=== PATIENT | female | born 1945 | race Caucasian/White ===

== ENCOUNTER 2016-06-09 15:53 | Inpatient (IN) | payer MEDICARE, OTHER ==
[2016-06-09] MEDS ORDERED: Albuterol/Ipratropium 3.0-0.5 MG/3 ML Neb Soln NEB ONE ×2 (16:01→16:47)
[2016-06-09] MEDS ORDERED: methylPREDNISolone Sodium Succinate 125 MG/2 ML SDV IV ONE (16:04)
[2016-06-09] MEDS ORDERED: Magnesium Sulfate/Water 2 GM in Premix Bag 1 BAG IV ONE (16:05)
[2016-06-09] MEDS ORDERED: Piperacillin/Tazobactam 4.5 GM in Sodium Chloride 0.9% 100 ML IV ONE (16:21)
[2016-06-09] MEDS ORDERED: Levofloxacin/Dextrose 5%-Water 750 MG in Premix Bag 1 BAG IV ONE (16:23)
[2016-06-09] MEDS ORDERED: Azithromycin 500 MG in Sodium Chloride 0.9% 250 ML IV ONE (16:27)
[2016-06-09] MEDS ORDERED: Albuterol 0.083% 2.5 MG/3 ML Neb Soln NEB ONE (16:32)
[2016-06-09 16:44] LABS: BASOPHILS PERCENT AUTO 0.3 % (0.2-1.2); EOSINOPHILS PERCENT AUTO 1.3 % (0.0-4.0); HEMATOCRIT 33.2 % (33.0-47.0); HEMOGLOBIN 10.8 g/dL (12.0-16.0); LYMPHOCYTES PERCENT AUTO 14.8 % (25.0-50.0); MEAN CORPUSCULAR HEMOGLOBIN 31.5 pg (26.0-32.0); MEAN CORPUSCULAR HGB CONC 32.5 g/dL (32.0-36.0); MEAN CORPUSCULAR VOLUME 96.8 fL (78.0-93.0); MONOCYTES PERCENT AUTO 8.9 % (2.0-11.0); NEUTROPHILS PERCENT AUTO 74.7 % (50.0-80.0); RED BLOOD CELL COUNT 3.43 x10^6/uL (4.00-5.50)
[2016-06-09 16:57] LABS: HCO3 ARTERIAL,ISTAT 21 mmol/L (22-26); O2 SATURATION ARTERIAL,ISTAT 99 % (95-98); PCO2 ARTERIAL,ISTAT 16 mmHG (35-45); PH ARTERIAL,ISTAT 7.719 (7.35-7.45); PO2 ARTERIAL,ISTAT 96 mmHG (80-105); TCO2 ARTERIAL,ISTAT 22 mmol/L (23-27)
[2016-06-09] MEDS: Sodium Chloride 0.9% 10 ML Syringe FLUSH PRN ×4 (17:17→23:26)
[2016-06-09 17:25] LABS: A/G RATIO 0.73; ALBUMIN 2.9 g/dL (3.4-5.0); ALKALINE PHOSPHATASE 110 U/L (46-116); B-TYPE NATRIURETIC PEPTIDE,BNP 426 pg/mL (<=125); BILIRUBIN TOTAL 0.6 mg/dL (0.2-1.0); C-REACTIVE PROTEIN 11.8 mg/dL (<=0.9); CALCIUM 9.6 mg/dL (8.5-10.1); CHLORIDE,CL 102 mmol/L (98-107); CKMB 1.5 ng/mL (0.0-3.6); CORRECTED CALCIUM 10.48 mg/dL (8.5-10.1); CREATININE 1.3 mg/dL (0.55-1.02); EST CRCL DRUG DOSING (CG) 33.34 mL/min; ESTIMATED GFR 41; GLUCOSE RANDOM 80 mg/dL (74-106); TROPONIN I < 0.017 ng/mL (<=0.056)
[2016-06-09] MEDS ORDERED: Sodium Chloride 0.9% 100 ML IV ONE (17:41)
[2016-06-09] MEDS ORDERED: Iopamidol 612 MG/ML 100 ML Bottle IVPUSH ONE (17:41)
[2016-06-09] MEDS ORDERED: Albuterol 0.083% 2.5 MG/3 ML Neb Soln NEB PRN (19:48)
[2016-06-09] MEDS ORDERED: Formoterol/Mometasone 200-5 MCG 8.8 GM Inhaler IH SCH (20:00)
--- NOTE | 2016-06-09 20:15 | PCM.HP ---
H&P History of Present Illness - General Date of Service: 06/09/16 Admit Problem/Dx: Admission Diagnosis/Problem Admission Diagnosis/Problem Community acquired pneumonia Source of Information: Patient History Limitations: Reports: No limitations - History of Present Illness Initial Comments - Free Text/Narative: Mrs. Tyler is a 70 yo female with PMH of mild intermittent asthma, RA on immunosuppression with plaquenil and methotrexate, CAD, vitamins B12 and D deficiency, depression, iron deficiency anemia, restless leg syndrome, chronic pain secondary to RA, recurrent UTIs, CKD stage III, gout, and osteoporosis who presented to clinic today for evaluation of 2 weeks of worsening dry cough and shortness of breath. She had been treated for an asthma exacerbation with a prednisone taper starting over one month ago. She was feeling better and felt well enough to go on her trip to [place]. However, while there, she developed worsening cough and shortness of breath. She has been consistently needing her rescue inhaler 3-4 times/day, which is very unusual for her. She has had some mild sinus congestion but no significant rhinorrhea. She has had no chest pain, fever, or chills. She has not needed to be in the hospital for her asthma for many years. She has no known sick contacts and has not been using any over the counter medications for her symptoms. Due to significant respiratory distress in clinic, she was transferred to the emergency room where she was subsequently stabilized and then admitted. Onset of Symptoms: Reports: gradual Symptom Onset Date: 05/26/16 Duration of Symptoms: Reports: Week(s): (2) Location: Reports: other (shortness of breath) Severity: moderate Improves with: Reports: Medication Worsens with: Reports: None Associated Symptoms: Reports: cough, loss of appetite, shortness of breath - Related Data Allergies/Adverse Reactions: Allergies Allergy/AdvReac Type Severity Reaction Status Date / Time Sulfa (Sulfonamide Allergy Hives Verified 06/09/16 17:36 Antibiotics) aspirin AdvReac Bleeding Verified 06/09/16 17:36 metoclopramide [From Reglan] AdvReac Numbness Verified 06/09/16 17:36 Home Medications: Home Meds Albuterol [Ventolin HFA] 2 inh INH QID PRN 02/09/16 [History] Amitriptyline [Elavil] 25 mg PO BEDTIME 02/09/16 [History] Calcium Carb & Citrate/Vit D3 [Citracal + D ER] 1 tab PO BID 02/09/16 [History] Cyanocobalamin (Vitamin B-12) [Cyanocobalamin Injection] 1,000 mcg IJ Q30D 02/08 [History] Cyanocobalamin (Vitamin B-12) [Vitamin B-12] 2 tab PO DAILY 02/09/16 [History] Docusate Sodium [Colace] 100 mg PO DAILY 02/09/16 [History] FLUoxetine HCl [Fluoxetine HCl] 20 mg PO DAILY 02/09/16 [History] Fluticasone/Salmeterol [Advair 250-50 Diskus] 1 inh PO BID 02/09/16 [History] Folic Acid 1 mg PO DAILY 02/09/16 [History] Gabapentin [Neurontin] 600 mg PO TID 02/09/16 [History] Hydroxychloroquine [Plaquenil] 200 mg PO BID 02/09/16 [History] Magnesium Oxide/Mag AA Chelate [Magnesium] 300 mg PO DAILY 02/09/16 [History] Methotrexate Sodium [Methotrexate] 2 tab PO WEEKLY 02/09/16 [History] Methylphenidate HCl 10 mg PO TID PRN 02/09/16 [History] Montelukast [Singulair] 10 mg PO DAILY 02/09/16 [History] Multivitamin with Minerals [Multiple Vitamin] 1 tab PO DAILY 02/09/16 [History] Niacin 1 tab PO DAILY 02/09/16 [History] Prochlorperazine Maleate [Compazine] 10 mg PO Q6HR PRN 02/09/16 [History] Ranitidine [Zantac] 150 mg PO BID 02/09/16 [History] buPROPion HCl [Wellbutrin Xl] 150 mg PO DAILY 02/09/16 [History] clonazePAM [Clonazepam] 1 tab PO BEDTIME 02/09/16 [History] oxyCODONE HCl/Acetaminophen [Percocet 10-325 mg Tablet] 1 each PO Q4H PRN [History] predniSONE [Prednisone] 1 tab PO DAILY 02/09/16 [History] Acyclovir [Zovirax] 1 dose TOP Q4H PRN 06/09/16 [History] Allopurinol [Zyloprim] 150 mg PO BEDTIME 06/09/16 [History] Cefdinir 600 mg PO DAILY 06/09/16 [History] Denosumab [Prolia] 60 mg SUBCUT Q132D 06/09/16 [History] Ergocalciferol (Vitamin D2) [Vitamin D2] 50,000 unit PO WEEKLY 06/09/16 [History ] Ferrous Gluconate 324 mg PO DAILY 06/09/16 [History] Fluticasone Propionate [Flonase] 2 spray NASBOTH DAILY 06/09/16 [History] Meloxicam [Mobic] 7.5 mg PO DAILY 06/09/16 [History] Olopatadine HCl [Pataday] 1 drop EYEBOTH DAILY 06/09/16 [History] Phenazopyridine [Pyridium] 100 mg PO TID 06/09/16 [History] Pramipexole Di-HCl [Mirapex] 0.25 mg PO BID 06/09/16 [History] Past Medical History HEENT History: Reports: None Cardiovascular History: Reports: CAD, Heart murmur, Other (see below) Other Cardiovascular History: orthostatic hypotension Respiratory History: Reports: Asthma Gastrointestinal History: Reports: Chronic diarrhea Genitourinary History: Reports: Chronic renal insuffiency, Renal disease, UTI, recurrent Musculoskeletal History: Reports: Arthritis, Gout, Osteoporosis, RA Neurological History: Reports: Migraines, Other (see below) (restless leg syndrome) Psychiatric History: Reports: Depression Endocrine/Metabolic History: Reports: Osteoporosis, Vitamin D deficiency Hematologic History: Reports: Anemia, B12 deficiency, Iron deficiency Immunologic History: Reports: Immunosuppression Oncologic (Cancer) History: Reports: Squamous cell carcinoma Dermatologic History: Reports: None - Infectious Disease History Infectious Disease History: Reports: None - Past Surgical History HEENT Surgical History: Reports: Adenoidectomy, Cataract surgery, Tonsillectomy GI Surgical History: Reports: Bariatric procedure, Colon Female Surgical History: Reports: Hysterectomy, Other (see below) (bladder repair) Musculoskeletal Surgical History: Reports: Other (see below) Other Musculoskeletal Surgeries/Procedures:: fracture surgery Social & Family History - Tobacco Use Smoking Status *Q: Never Smoker - Alcohol Use Alcohol Use History: No - Recreational Drug Use Recreational Drug Use: No - Sexual History Sexual History: Reports: Single partner - Living Situation & Occupation Living situation: Reports: , with spouse Occupation: retired (worked at [employer]) H&P Review of Systems - Review of Systems: Review Of Systems: See Below General: Reports: malaise, fatigue, weight loss HEENT: Reports: no symptoms Pulmonary: Reports: shortness of breath, wheezing, cough Cardiovascular: Reports: no symptoms Gastrointestinal: Reports: No symptoms Genitourinary: Reports: no symptoms Musculoskeletal: Reports: no symptoms Skin: Reports: no symptoms Psychiatric: Reports: no symptoms Neurological: Reports: no symptoms Hematologic/Lymphatic: Reports: anemia, easy bruising Exam - Exam Exam: See Below - Vital Signs Vital Signs: Last Vital Signs Temp 35.5 C 06/09/16 15:55 Pulse 80 06/09/16 18:36 Resp 18 06/09/16 18:36 BP 108/62 06/09/16 18:36 Pulse Ox 99 06/09/16 18:36 Weight: 51.71 kg - Exam Quality Assessment: supplemental oxygen General: alert, oriented, cooperative HEENT: Conjunctiva clear, Mucosa moist & pink, Pupils equal, Pupils reactive Neck: supple, trachea midline. No: lymphadenopathy Lungs: Crackles (right lower lobe), Wheezing (diffuse, bilateral) Cardiovascular: regular rate, regular rhythm, normal S1, normal S2. No: systolic murmur, diastolic murmur Abdomen: normal bowel sounds, soft. No: organomegaly, tenderness Back Exam: normal inspection, full range of motion Extremities: normal inspection, normal pulses. No: edema Skin: warm, dry, intact Neurological: cranial nerves intact. No: focal deficit - Patient Data Result Diagrams: 06/09/16 16:34 06/09/16 16:28 *Q Meaningful Use (ADM) - VTE *Q VTE Criteria *Q: VTE Anticoagulation Contraindications: Med/tx not indicated/need - Stroke *Q Stroke Criteria *Q: - AMI *Q AMI Criteria *Q: - Problem List (1) Acute hypercapnic respiratory failure SNOMED Code(s): 874823841 ICD Code: J96.02 - ACUTE RESPIRATORY FAILURE WITH HYPERCAPNIA Status: Resolved Current Visit: Yes Problem Details: - ABG shows hypercapneic respiratory failure, likely related to asthma exacerbation with impending respiratory compromise. Patient was placed on BiPap with significant improvement in symptoms. - Doing well now on supplemental oxygen via [place]. Will restart BiPap PRN. - Other causes of her respiratory have been ruled out: CHF (normal BNP, CXR without fluid overload), PE (d-dimer elevated but CT negative), other lung processes (CT shows inflammation from RA and pneumonia only), cardiac ischemia ( negative troponin, ECG without significant findings), and severe anemia. (2) Community acquired pneumonia SNOMED Code(s): 086551579 ICD Code: J18.9 - PNEUMONIA, UNSPECIFIED ORGANISM Status: Acute Current Visit: Yes Problem Details: - Patient has evidence of CAP based on history, exam, and CXR. - She does not meet any sepsis criteria. - Blood cultures ordered and pending from the ED before antibiotics were given. - Due to severity of illness and risk for MDR pathogens given underlying lung disease, will continue zosyn overnight. She got a dose of azithromycin in the ED as well. - If she remains improved tomorrow, will consider transition to cefdinir + azithromycin. - IV fluid bolus PRN; otherwise, orals. (3) Asthma exacerbation SNOMED Code(s): 712904121 ICD Code: J45.901 - UNSPECIFIED ASTHMA WITH (ACUTE) EXACERBATION Status: Acute Current Visit: Yes Problem Details: - Secondary to community acquired pneumonia and possible contribution from RA related lung disease. - Albuterol nebs q4 hours scheduled with q2 hours PRN. - She got IV steroids in the ED. Will do 40 mg prednisone daily for now. Patient will likely require a taper upon homegoing. - Continue Advair and singulair. (4) Immunosuppressed status SNOMED Code(s): 82313758 ICD Code: D89.9 - DISORDER INVOLVING THE IMMUNE MECHANISM, UNSPECIFIED Status: Chronic Current Visit: Yes Problem Details: - Mild in relative terms. - Patient is not at risk for PJP pneumonia with this type of immunosuppresion and does not require antibiotic coverage for this. (5) Anemia SNOMED Code(s): 113754158 ICD Code: D64.9 - ANEMIA, UNSPECIFIED Status: Chronic Current Visit: Yes Problem Details: - Hgb down slightly from last check. - Will monitor daily while hospitalized. Qualifiers: Anemia type: iron deficiency Iron deficiency anemia type: unspecified iron deficiency Qualified Code(s): D50.9 - Iron deficiency anemia, unspecified (6) Coronary artery disease SNOMED Code(s): 25784133 ICD Code: I25.10 - ATHSCL HEART DISEASE OF [place] CORONARY ARTERY W/O ANG PCTRS Status: Chronic Current Visit: Yes Problem Details: - No evidence patient has any symptoms of cardiac ischemia. - Does not require repeat troponin as symptoms have been present for 2 weeks so troponin would be up by now. - Patient is not on any medications for this. Qualifiers: Coronary Disease-Associated Artery/Lesion type: [place] artery [place] vs. transplanted heart: [place] heart Associated angina: without angina Qualified Code(s): I25.10 - Atherosclerotic heart disease of [place] coronary artery without angina pectoris (7) Depression SNOMED Code(s): 41169070 ICD Code: F32.9 - MAJOR DEPRESSIVE DISORDER, SINGLE EPISODE, UNSPECIFIED Status: Chronic Current Visit: Yes Problem Details: - Continue home medications. Qualifiers: Depression Type: major depressive disorder Active/Remission status: in full remission (8) Restless leg syndrome SNOMED Code(s): 83118989 ICD Code: G25.81 - RESTLESS LEGS SYNDROME Status: Chronic Current Visit: Yes Problem Details: - Not on medications specific to this but suspect gabapentin and clonazepam both help manage this. - Continue home medications. (9) Chronic kidney disease SNOMED Code(s): 443054699 ICD Code: N18.9 - CHRONIC KIDNEY DISEASE, UNSPECIFIED Status: Chronic Current Visit: Yes Problem Details: - Creatinine is actually slightly better than last check. - Will monitor daily. - Renally dose medications. - Avoid nephrotoxins. Qualifiers: Chronic kidney disease stage: stage 3 (moderate) Qualified Code(s): N18.3 - Chronic kidney disease, stage 3 (moderate) (10) Rheumatoid arthritis SNOMED Code(s): 95494903 ICD Code: M06.9 - RHEUMATOID ARTHRITIS, UNSPECIFIED Status: Chronic Current Visit: Yes Problem Details: - Symptoms currently well controlled. - She will not be due for her methotrexate while hospitalized. - Prednisone will be dosed as above. - Otherwise, continue home medications. Qualifiers: Rheumatoid arthritis location: multiple sites Rheumatoid factor presence: unspecified presence Qualified Code(s): M06.9 - Rheumatoid arthritis, unspecified (11) Osteoporosis SNOMED Code(s): 01336017 ICD Code: M81.0 - AGE-RELATED OSTEOPOROSIS W/O CURRENT PATHOLOGICAL FRACTURE Status: Chronic Current Visit: Yes Problem Details: - Not on any medications for this. Problem List Initiated/Reviewed/Updated: Yes Orders Last 24hrs: Active Orders 24 hr Category Date Time Status Patient Status [ADT] Routine ADT 06/09/16 19:44 Active Notify Provider Vital Signs [RC] ASDIRECTED Care 06/09/16 19:45 Active Oxygen Therapy [RC] PRN Care 06/09/16 19:44 Active RT Aerosol Therapy [RC] ASDIRECTED Care 06/09/16 19:48 Active RT Aerosol Therapy [RC] ASDIRECTED Care 06/09/16 19:49 Active Up With Assistance [RC] ASDIRECTED Care 06/09/16 19:44 Active VTE/DVT Education [RC] PER UNIT ROUTINE Care 06/09/16 19:44 Active Vital Signs [RC] Q4H Care 06/09/16 19:44 Active Regular Diet [DIET] Diet 06/09/16 Breakfast Active BASIC METABOLIC PANEL,BMP [CHEM] AM Lab 06/10/16 05:11 Ordered CBC WITH AUTO DIFF [HEME] AM Lab 06/10/16 05:11 Ordered Acetaminophen [Tylenol] Med 06/09/16 19:44 Ordered 650 mg PO Q4H PRN Albuterol [Proventil Neb Soln] Med 06/09/16 19:48 Ordered 2.5 mg NEB Q2H PRN Albuterol [Proventil Neb Soln] Med 06/09/16 20:00 Ordered 2.5 mg NEB Q4H Amitriptyline [Elavil] Med 06/09/16 20:00 Ordered 25 mg PO BEDTIME ClonazePAM [KlonoPIN] Med 06/09/16 20:00 Ordered DOSE mg PO BEDTIME Cyanocobalamin (Vitamin B-12) [Vitamin B-12] Med 06/09/16 20:00 Ordered 1 tab PO BID FLUoxetine [PROzac] Med 06/10/16 08:00 Ordered 20 mg PO DAILY Fluticasone/Salmeterol [Advair 250-50 Diskus] Med 06/09/16 20:00 Ordered 1 inh PO BID Folic Acid [Folic Acid] Med 06/10/16 08:00 Ordered 1 mg PO DAILY Gabapentin Med 06/09/16 20:00 Ordered 600 mg PO TID Hydroxychloroquine [Plaquenil] Med 06/09/16 20:00 Ordered 200 mg PO BID Montelukast [Singulair] Med 06/10/16 08:00 Ordered 10 mg PO DAILY Multivitamin with Minerals [Multiple Vitamin] Med 06/10/16 08:00 Ordered 1 tab PO DAILY Piperacillin/Tazobactam [Zosyn] 3.375 gm Med 06/09/16 23:00 Ordered Sodium Chloride 0.9% [Normal Saline] 100 ml IV Q6H Ranitidine [Zantac] Med 06/09/16 20:00 Ordered 150 mg PO BID buPROPion [Wellbutrin XL] Med 06/10/16 08:00 Ordered 150 mg PO DAILY predniSONE Med 06/10/16 08:00 Ordered 40 mg PO WITHBREAKFAST Anticoagulation Contraindications VTE [AST] Per Unit Oth 06/09/16 19:44 Ordered Routine Resuscitation Status Routine Resus Stat 06/09/16 19:44 Ordered Medication Orders Acetaminophen (Tylenol) 650 mg PO Q4H PRN PRN Reason: Pain (Mild 1-3)/fever Albuterol (Proventil Neb Soln) 2.5 mg NEB Q2H PRN PRN Reason: Wheezing Albuterol (Proventil Neb Soln) 2.5 mg NEB Q4H [facility] Amitriptyline HCl (Elavil) 25 mg PO BEDTIME [facility] Bupropion HCl (Wellbutrin Xl) 150 mg PO DAILY [facility] Clonazepam (Klonopin) mg PO BEDTIME KALEY Fluoxetine HCl (Prozac) 20 mg PO DAILY [facility] Hydroxychloroquine Sulfate (Plaquenil) 200 mg PO BID [facility]Y Piperacillin Sod/Tazobactam (Sod 3.375 gm/ Sodium Chloride) 100 mls @ 200 mls/ hr IV Q6H [facility] Montelukast Sodium (Singulair) 10 mg PO DAILY [facility] Non-Formulary Medication (Cyanocobalamin (Vitamin B-12) [Vitamin B-12]) 1 tab PO BID [facility] Non-Formulary Medication (Fluticasone/Salmeterol [Advair 250-50 Diskus]) 1 inh PO BID [facility] Non-Formulary Medication (Folic Acid [Folic Acid]) 1 mg PO DAILY [facility] Non-Formulary Medication (Gabapentin) 600 mg PO TID [facility] Non-Formulary Medication (Multivitamin With Minerals [Multiple Vitamin]) 1 tab PO DAILY [facility] Non-Formulary Medication (Ranitidine [Zantac]) 150 mg PO BID [facility] Prednisone (Prednisone) 40 mg PO WITHBREAKFAST KALEY Sodium Chloride (Saline Flush) 10 ml FLUSH ASDIRECTED PRN PRN Reason: Keep Vein Open Last Admin: 06/09/16 17:17 Dose: 10 ml Sodium Chloride (Saline Flush) 10 ml FLUSH ASDIRECTED PRN PRN Reason: Keep Vein Open Last Admin: 06/09/16 18:35 Dose: 10 ml Admin: 06/09/16 17:21 Dose: 10 ml Assessment/Plan Comment:: 70 yo female admitted with hypercapneic respiratory failure secondary to asthma exacerbation secondary to community acquired pneumonia. See further details under individual problems above. Doing much better after stabilization in the ED. Continue IV zosyn. Also continue prednisone and frequent nebulizer treatments. Supplemental oxygen as needed. No VTE prophylaxis for now. If patient ends up staying another night, will start heparin 5,000 mg TID due to renal disease. Anticipate patient will be admitted for 48-72 hours. Patient is DNR/DNI.
[2016-06-09] MEDS: Albuterol 0.083% 2.5 MG/3 ML Neb Soln NEB SCH ×2 (20:53→23:26)
[2016-06-09] MEDS: Famotidine 20 MG Tab PO SCH (21:57)
[2016-06-09] MEDS: ClonazePAM 0.5 MG Tab PO SCH (21:58)
[2016-06-09] MEDS: Hydroxychloroquine 200 MG Tab PO SCH (21:58)
[2016-06-09] MEDS: Gabapentin 300 MG Cap PO SCH (21:58)
[2016-06-09] MEDS: Amitriptyline 25 MG Tab PO SCH (21:58)
[2016-06-09] MEDS ORDERED: Albuterol 0.083% 2.5 MG/3 ML Neb Soln NEB SCH (23:00)
[2016-06-09] MEDS: Piperacillin/Tazobactam 3.375 GM in Sodium Chloride 0.9% 100 ML IV SCH (23:26)
[2016-06-10] MEDS: Albuterol 0.083% 2.5 MG/3 ML Neb Soln NEB SCH ×6 (03:40→23:11)
[2016-06-10] MEDS: Piperacillin/Tazobactam 3.375 GM in Sodium Chloride 0.9% 100 ML IV SCH ×2 (07:29→14:22)
[2016-06-10] MEDS: Multivitamins with Iron/Calcium/Folic Acid/Minerals Tab PO SCH (08:04)
[2016-06-10] MEDS: buPROPion 150 MG Tab.ER PO SCH (08:04)
[2016-06-10] MEDS: Cyanocobalamin (Vitamin B12) 250 MCG Tab PO SCH (08:04)
[2016-06-10] MEDS: Hydroxychloroquine 200 MG Tab PO SCH ×2 (08:04→21:59)
[2016-06-10] MEDS: Formoterol/Mometasone 200-5 MCG 8.8 GM Inhaler IH SCH ×2 (08:04→21:58)
[2016-06-10] MEDS: FLUoxetine 20 MG Cap PO SCH (08:04)
[2016-06-10] MEDS: Gabapentin 300 MG Cap PO SCH ×3 (08:05→21:59)
[2016-06-10] MEDS: Folic Acid 1 MG Tab PO SCH (08:05)
[2016-06-10] MEDS: Montelukast 10 MG Tab PO SCH (08:05)
[2016-06-10] MEDS: predniSONE 20 MG Tab PO SCH (08:05)
[2016-06-10 08:33] LABS: CREATININE 1.2 mg/dL (0.55-1.02); EST CRCL DRUG DOSING (CG) 36.12 mL/min
[2016-06-10 08:36] LABS: BASOPHILS PERCENT AUTO 0.1 % (0.2-1.2); HEMATOCRIT 29.9 % (33.0-47.0); HEMOGLOBIN 9.6 g/dL (12.0-16.0); LYMPHOCYTES PERCENT AUTO 3.5 % (25.0-50.0); MEAN CORPUSCULAR HEMOGLOBIN 31.8 pg (26.0-32.0); MEAN CORPUSCULAR HGB CONC 32.1 g/dL (32.0-36.0); MONOCYTES PERCENT AUTO 2.3 % (2.0-11.0); RDW CV 16.3 % (10.0-15.0); RED BLOOD CELL COUNT 3.02 x10^6/uL (4.00-5.50)
[2016-06-10 08:40] LABS: NEUTROPHILS PERCENT AUTO 94.1 % (50.0-80.0)
--- NOTE | 2016-06-10 09:40 | PCM.PN ---
- General Info Date of Service: 06/10/16 Subjective Update: Feeling much better this morning. Slept ok overnight. Cough and shortness of breath are improved. No chest pain, fever, or chills. No abdominal pain, vomiting, or diarrhea. No bleeding from anywhere. - Review of Systems General: Reports: no symptoms HEENT: Reports: no symptoms Pulmonary: Reports: shortness of breath, cough, wheezing Cardiovascular: Reports: no symptoms Gastrointestinal: Reports: No symptoms Musculoskeletal: Reports: no symptoms Skin: Reports: no symptoms Neurological: Reports: no symptoms - Patient Data Vitals - most recent: Last Vital Signs Temp 36.4 C 06/10/16 05:58 Pulse 73 06/10/16 05:58 Resp 18 06/10/16 05:58 BP 136/61 06/10/16 05:58 Pulse Ox 94 L 06/10/16 07:14 Weight - most recent: 51.71 kg I&O - last 24 hours: Intake & Output 06/09/16 06/10/16 06/10/16 22:59 06:59 14:59 Intake Total 300 398 Output Total 300 450 Balance 0 -52 Lab Results last 24 hrs: Laboratory Results - last 24 hr 06/10/16 06/10/16 Range/Units 07:30 07:30 WBC 11.0 H (4.0-10.0) x10^3/uL RBC 3.02 L (4.00-5.50) x10^6/uL Hgb 9.6 L (12.0-16.0) g/dL Hct 29.9 L (33.0-47.0) % MCV 99.0 H (78.0-93.0) fL MCH 31.8 (26.0-32.0) pg MCHC 32.1 (32.0-36.0) g/dL RDW Coeff of Gabbie 16.3 H (10.0-15.0) % Plt Count 479 H (130-400) x10^3/uL Neut % (Auto) 94.1 H (50.0-80.0) % Lymph % (Auto) 3.5 L (25.0-50.0) % [place] % (Auto) 2.3 (2.0-11.0) % Eos % (Auto) 0.0 (0.0-4.0) % Baso % (Auto) 0.1 L (0.2-1.2) % Sodium 137 (136-145) mmol/L Potassium 5.0 (3.5-5.1) mmol/L Chloride 101 (98-107) mmol/L Carbon Dioxide 28 (21-32) mmol/L BUN 20 H (7-18) mg/dL Creatinine 1.2 H (0.55-1.02) mg/dL Est Cr Clr Drug Dosing 36.12 mL/min Estimated GFR (MDRD) 45 Glucose 128 H (74-106) mg/dL Calcium 9.0 (8.5-10.1) mg/dL Med Orders - Current: Current Medications Acetaminophen (Tylenol) 650 mg PO Q4H PRN PRN Reason: Pain (Mild 1-3)/fever Albuterol (Proventil Neb Soln) 2.5 mg NEB Q2H PRN PRN Reason: Wheezing Albuterol (Proventil Neb Soln) 2.5 mg NEB Q4HRRT [facility] Last Admin: 06/10/16 07:10 Dose: 2.5 mg Amitriptyline HCl (Elavil) 25 mg PO BEDTIME [facility] Last Admin: 06/09/16 21:58 Dose: 25 mg Bupropion HCl (Wellbutrin Xl) 150 mg PO DAILY [facility] Last Admin: 06/10/16 08:04 Dose: 150 mg Clonazepam (Klonopin) 0.5 mg PO BEDTIME [facility] Last Admin: 06/09/16 21:58 Dose: 0.5 mg Cyanocobalamin (Vitamin B12) 250 mcg PO DAILY [facility] Last Admin: 06/10/16 08:04 Dose: 250 mcg Famotidine (Pepcid) 20 mg PO DAILY@1999 [facility] Last Admin: 06/09/16 21:57 Dose: 20 mg Fluoxetine HCl (Prozac) 20 mg PO DAILY [facility] Last Admin: 06/10/16 08:04 Dose: 20 mg Folic Acid (Folic Acid) 1 mg PO DAILY [facility] Last Admin: 06/10/16 08:05 Dose: 1 mg Gabapentin (Neurontin) 600 mg PO TID [facility] Last Admin: 06/10/16 08:05 Dose: 600 mg Hydroxychloroquine Sulfate (Plaquenil) 200 mg PO BID [facility] Last Admin: 06/10/16 08:04 Dose: 200 mg Piperacillin Sod/Tazobactam (Sod 3.375 gm/ Sodium Chloride) 100 mls @ 25 mls/ hr IV Q8H [facility] Last Admin: 06/10/16 07:29 Dose: 25 mls/hr Mometasone Furoate/Formoterol Fumar (Dulera 200-5 Mcg) 2 puff IH BID [facility] Last Admin: 06/10/16 08:04 Dose: 2 puff Montelukast Sodium (Singulair) 10 mg PO DAILY [facility] Last Admin: 06/10/16 08:05 Dose: 10 mg Multivitamins/Minerals (Thera M Plus) 1 tab PO DAILY [facility] Last Admin: 06/10/16 08:04 Dose: 1 tab Prednisone (Prednisone) 40 mg PO WITHBREAKFAST [facility] Last Admin: 06/10/16 08:05 Dose: 40 mg Sodium Chloride (Saline Flush) 10 ml FLUSH ASDIRECTED PRN PRN Reason: Keep Vein Open Last Admin: 06/09/16 23:26 Dose: 10 ml Sodium Chloride (Saline Flush) 10 ml FLUSH ASDIRECTED PRN PRN Reason: Keep Vein Open Last Admin: 06/09/16 18:35 Dose: 10 ml Discontinued Medications Albuterol (Proventil Neb Soln) 2.5 mg NEB ONETIME ONE Stop: 06/09/16 16:33 Last Admin: 06/09/16 16:47 Dose: 2.5 mg Albuterol (Proventil Neb Soln) 2.5 mg NEB Q4HRRT [facility] Albuterol/Ipratropium (Duoneb 3.0-0.5 Mg/3 Ml) 3 ml NEB ONETIME ONE Stop: 06/09/16 16:02 Last Admin: 06/09/16 16:10 Dose: 3 ml Albuterol/Ipratropium (Duoneb 3.0-0.5 Mg/3 Ml) 3 ml NEB ONETIME ONE Stop: 06/09/16 16:48 Last Admin: 06/09/16 16:52 Dose: 3 ml Magnesium Sulfate 2 gm/ Premix 50 mls @ 25 mls/hr IV ONETIME ONE Stop: 06/09/16 18:04 Last Admin: 06/09/16 16:17 Dose: 25 mls/hr Piperacillin Sod/Tazobactam (Sod 4.5 gm/ Sodium Chloride) 100 mls @ 200 mls/hr IV ONETIME ONE Stop: 06/09/16 16:50 Last Admin: 06/09/16 16:47 Dose: 200 mls/hr Levofloxacin/Dextrose 750 mg/ (Premix) 150 mls @ 100 mls/hr IV ONETIME ONE Stop: 06/09/16 17:52 Azithromycin 500 mg/ Sodium (Chloride) 250 mls @ 250 mls/hr IV ONETIME ONE Stop: 06/09/16 17:26 Last Admin: 06/09/16 17:30 Dose: 250 mls/hr Sodium Chloride (Normal Saline) 100 mls @ 3 mls/sec IV ONETIME ONE Stop: 06/09/16 17:42 Last Admin: 06/09/16 18:04 Dose: 3 mls/sec Iopamidol (Isovue-300 (61%)) 100 ml IVPUSH ONETIME ONE Stop: 06/09/16 17:42 Last Admin: 06/09/16 18:04 Dose: 100 ml Methylprednisolone Sodium Succinate (Solu-Medrol) 125 mg IV ONETIME ONE Stop: 06/09/16 16:05 Last Admin: 06/09/16 16:13 Dose: 125 mg Mometasone Furoate/Formoterol Fumar (Dulera 200-5 Mcg) 2 puff IH BIDRT [facility] Last Admin: 06/09/16 21:56 Dose: 2 puff - Exam General: alert, oriented, cooperative, no acute distress HEENT: Pupils equal, Pupils reactive, Mucous membr. moist/pink Neck: supple, trachea midline. No: lymphadenopathy Lungs: Crackles (right lower lobe), Wheezing (diffuse expiratory) Abdomen: bowel sounds present, soft, no tenderness, no distension Extremities: no edema, normal pulses Skin: warm, dry, intact - Problem List & Annotations (1) Acute hypercapnic respiratory failure SNOMED Code(s): 970057036 Code(s): J96.02 - ACUTE RESPIRATORY FAILURE WITH HYPERCAPNIA Status: Resolved Current Visit: Yes Annotation/Comment:: - ABG showed hypercapneic respiratory failure, likely related to asthma exacerbation with impending respiratory compromise. Patient was placed on BiPap with significant improvement in symptoms. - Doing well now without supplemental oxygen. Will restart NC or BiPap PRN. (2) Community acquired pneumonia SNOMED Code(s): 020299975 Code(s): J18.9 - PNEUMONIA, UNSPECIFIED ORGANISM Status: Acute Current Visit: Yes Annotation/Comment:: - Patient has evidence of CAP based on history , exam, and CXR. Has not met any sepsis criteria. - Blood cultures ordered and pending from the ED before antibiotics were given. - Due to severity of illness and risk for MDR pathogens given underlying lung disease, will zosyn today. She got a dose of azithromycin in the ED as well. - If she does well throughout the day today, will consider transition to cefdinir + azithromycin later today. - IV fluid bolus PRN; otherwise, orals. (3) Asthma exacerbation SNOMED Code(s): 421763033 Code(s): J45.901 - UNSPECIFIED ASTHMA WITH (ACUTE) EXACERBATION Status: Acute Current Visit: Yes Annotation/Comment:: - Secondary to community acquired pneumonia and possible contribution from RA related lung disease. - Albuterol nebs q4 hours scheduled with q2 hours PRN. - She got IV steroids in the ED. Will do 40 mg prednisone daily for now. Patient will likely require a taper upon homegoing. - Continue Advair and singulair. (4) Immunosuppressed status SNOMED Code(s): 05876960 Code(s): D89.9 - DISORDER INVOLVING THE IMMUNE MECHANISM, UNSPECIFIED Status: Chronic Current Visit: Yes Annotation/Comment:: - Mild in relative terms. - Patient is not at risk for PJP pneumonia with this type of immunosuppresion and does not require antibiotic coverage for this. (5) Anemia SNOMED Code(s): 007361927 Code(s): D64.9 - ANEMIA, UNSPECIFIED Status: Chronic Current Visit: Yes Qualifiers: Anemia type: iron deficiency Iron deficiency anemia type: unspecified iron deficiency Qualified Code(s): D50.9 - Iron deficiency anemia, unspecified Annotation/Comment:: - Hgb dropped >1 gram overnight. No significant fluid administration; no obvious source of bleeding. - Recheck tomorrow, sooner if patient has symptoms of anemia. (6) Coronary artery disease SNOMED Code(s): 66981019 Code(s): I25.10 - ATHSCL HEART DISEASE OF [place] CORONARY ARTERY W/O ANG PCTRS Status: Chronic Current Visit: Yes Qualifiers: Coronary Disease-Associated Artery/Lesion type: [place] artery [place] vs. transplanted heart: [place] heart Associated angina: without angina Qualified Code(s): I25.10 - Atherosclerotic heart disease of [place] coronary artery without angina pectoris Annotation/Comment:: - No evidence patient has any symptoms of cardiac ischemia. - Patient is not on any medications for this. (7) Depression SNOMED Code(s): 46071321 Code(s): F32.9 - MAJOR DEPRESSIVE DISORDER, SINGLE EPISODE, UNSPECIFIED Status: Chronic Current Visit: Yes Qualifiers: Depression Type: major depressive disorder Active/Remission status: in full remission Annotation/Comment:: - Continue home medications. (8) Restless leg syndrome SNOMED Code(s): 88692478 Code(s): G25.81 - RESTLESS LEGS SYNDROME Status: Chronic Current Visit: Yes Annotation/Comment:: - Not on medications specific to this but suspect gabapentin and clonazepam both help manage this. - Continue home medications. (9) Chronic kidney disease SNOMED Code(s): 456615517 Code(s): N18.9 - CHRONIC KIDNEY DISEASE, UNSPECIFIED Status: Chronic Current Visit: Yes Qualifiers: Chronic kidney disease stage: stage 3 (moderate) Qualified Code(s): N18.3 - Chronic kidney disease, stage 3 (moderate) Annotation/Comment:: - Creatinine stable. - Will monitor daily. - Renally dose medications. - Avoid nephrotoxins. (10) Rheumatoid arthritis SNOMED Code(s): 19158698 Code(s): M06.9 - RHEUMATOID ARTHRITIS, UNSPECIFIED Status: Chronic Current Visit: Yes Qualifiers: Rheumatoid arthritis location: multiple sites Rheumatoid factor presence: unspecified presence Qualified Code(s): M06.9 - Rheumatoid arthritis, unspecified Annotation/Comment:: - Symptoms currently well controlled. - She will not be due for her methotrexate while hospitalized. - Prednisone will be dosed as above. - Otherwise, continue home medications. (11) Osteoporosis SNOMED Code(s): 27103742 Code(s): M81.0 - AGE-RELATED OSTEOPOROSIS W/O CURRENT PATHOLOGICAL FRACTURE Status: Chronic Current Visit: Yes Annotation/Comment:: - Not on any medications for this. - Problem List Review Problem List Initiated/Reviewed/Updated: Yes - My Orders Last 24 Hours: My Active Orders 06/11/16 05:11 BASIC METABOLIC PANEL,BMP [CHEM] Routine CBC WITH AUTO DIFF [HEME] Routine 06/09/16 19:44 Patient Status [ADT] Routine Oxygen Therapy [RC] PRN Up With Assistance [RC] ASDIRECTED VTE/DVT Education [RC] PER UNIT ROUTINE Vital Signs [RC] 02,06,10,14,18,22 Acetaminophen [Tylenol] 650 mg PO Q4H PRN Anticoagulation Contraindications VTE [AST] Per Unit Routine Resuscitation Status Routine 06/09/16 19:45 Notify Provider Vital Signs [RC] ASDIRECTED 06/09/16 19:48 RT Aerosol Therapy [RC] ASDIRECTED Albuterol [Proventil Neb Soln] 2.5 mg NEB Q2H PRN 06/09/16 19:49 RT Aerosol Therapy [RC] ASDIRECTED 06/09/16 20:00 Albuterol [Proventil Neb Soln] 2.5 mg NEB Q4HRRT Amitriptyline [Elavil] 25 mg PO BEDTIME ClonazePAM [KlonoPIN] 0.5 mg PO BEDTIME Famotidine [Pepcid] 20 mg PO DAILY@2000 Gabapentin [Neurontin] 600 mg PO TID Hydroxychloroquine [Plaquenil] 200 mg PO BID 06/09/16 23:00 Piperacillin/Tazobactam [Zosyn] 3.375 gm Sodium Chloride 0.9% [Normal Saline] 100 ml IV Q8H 06/10/16 08:00 Cyanocobalamin (Vitamin B12) [Vitamin B12] 250 mcg PO DAILY FLUoxetine [PROzac] 20 mg PO DAILY Folic Acid 1 mg PO DAILY Mometasone/Formoterol [Dulera 200-5 MCG] 2 puff IH BID Montelukast [Singulair] 10 mg PO DAILY Multivitamins w-Iron/Ca/FA/Min [Thera M Plus] 1 tab PO DAILY buPROPion [Wellbutrin XL] 150 mg PO DAILY predniSONE 40 mg PO WITHBREAKFAST - Assessment Assessment:: 70 yo female admitted with community acquired pneumonia and asthma exacerbation. Doing much better today. - Plan Plan:: See further details under individual problems above. Continue IV zosyn today; she got a dose of azithromycin last night as well. If she continues to do well throughout the day, will transition to cefdinir and azithromycin tonight. Also continue prednisone and frequent nebulizer treatments. Supplemental oxygen as needed. For VTE prophylaxis, start heparin 5,000 mg TID due to renal disease. Anticipate patient will be dismissed home tomorrow. Patient is DNR/DNI.
--- NOTE | 2016-06-10 09:47 | PCM.SN ---
- Free Text/Narrative Note: On reconsideration, with the dropping hemoglobin, will hold off on starting pharmacologic VTE prophylaxis. Will encourage ambulation today.
[2016-06-10] MEDS: Acetaminophen 325 MG Tab PO PRN (14:22)
[2016-06-10] MEDS: Amitriptyline 25 MG Tab PO SCH (21:58)
[2016-06-10] MEDS: Cefdinir 300 MG Cap PO SCH (21:59)
[2016-06-10] MEDS: Famotidine 20 MG Tab PO SCH (21:59)
[2016-06-10] MEDS: ClonazePAM 0.5 MG Tab PO SCH (21:59)
[2016-06-11] MEDS: Albuterol 0.083% 2.5 MG/3 ML Neb Soln NEB SCH ×6 (04:50→22:05)
[2016-06-11 07:49] LABS: BASOPHILS PERCENT AUTO 0.1 % (0.2-1.2); EOSINOPHILS PERCENT AUTO 0.1 % (0.0-4.0); HEMATOCRIT 31.3 % (33.0-47.0); HEMOGLOBIN 9.9 g/dL (12.0-16.0); LYMPHOCYTES PERCENT AUTO 7.8 % (25.0-50.0); MEAN CORPUSCULAR HEMOGLOBIN 31.4 pg (26.0-32.0); MEAN CORPUSCULAR HGB CONC 31.6 g/dL (32.0-36.0); MEAN CORPUSCULAR VOLUME 99.4 fL (78.0-93.0); MONOCYTES PERCENT AUTO 6.2 % (2.0-11.0); RDW CV 16.5 % (10.0-15.0); RED BLOOD CELL COUNT 3.15 x10^6/uL (4.00-5.50)
[2016-06-11 08:05] LABS: CALCIUM 9.2 mg/dL (8.5-10.1); CREATININE 1.2 mg/dL (0.55-1.02); EST CRCL DRUG DOSING (CG) 36.12 mL/min
[2016-06-11] MEDS: predniSONE 20 MG Tab PO SCH (08:07)
[2016-06-11] MEDS: Folic Acid 1 MG Tab PO SCH (08:07)
[2016-06-11] MEDS: Cefdinir 300 MG Cap PO SCH ×2 (08:07→20:47)
[2016-06-11] MEDS: Montelukast 10 MG Tab PO SCH (08:07)
[2016-06-11] MEDS: FLUoxetine 20 MG Cap PO SCH (08:07)
[2016-06-11] MEDS: buPROPion 150 MG Tab.ER PO SCH (08:07)
[2016-06-11] MEDS: Hydroxychloroquine 200 MG Tab PO SCH ×2 (08:07→20:48)
[2016-06-11] MEDS: Gabapentin 300 MG Cap PO SCH ×3 (08:07→20:47)
[2016-06-11] MEDS: Formoterol/Mometasone 200-5 MCG 8.8 GM Inhaler IH SCH ×2 (08:07→20:49)
[2016-06-11] MEDS: Cyanocobalamin (Vitamin B12) 250 MCG Tab PO SCH (08:07)
[2016-06-11] MEDS: Multivitamins with Iron/Calcium/Folic Acid/Minerals Tab PO SCH (08:07)
[2016-06-11 08:17] LABS: NEUTROPHILS PERCENT AUTO 85.8 % (50.0-80.0)
--- NOTE | 2016-06-11 09:38 | PCM.PN ---
- General Info Date of Service: 06/11/16 Subjective Update: Patient is not doing as well this morning. Since last night, she has had increased chest tightness and shortness of breath. The neb treatment this morning did help somewhat. She did not get any neb treatments overnight. She has had no fever or chills. She has had no abdominal pain, vomiting, or diarrhea. Functional Status: Reports: pain controlled, tolerating diet, ambulating, urinating - Review of Systems General: Reports: no symptoms HEENT: Reports: no symptoms Pulmonary: Reports: shortness of breath, cough, wheezing Cardiovascular: Reports: no symptoms Gastrointestinal: Reports: No symptoms Skin: Reports: no symptoms - Patient Data Vitals - most recent: Last Vital Signs Temp 36.6 C 06/11/16 06:00 Pulse 73 06/11/16 06:00 Resp 18 06/11/16 06:00 BP 129/54 L 06/11/16 06:00 Pulse Ox 98 06/11/16 07:02 Weight - most recent: 51.71 kg I&O - last 24 hours: Intake & Output 06/10/16 06/11/16 06/11/16 22:59 06:59 14:59 Intake Total 550 Output Total 1000 Balance -450 Lab Results last 24 hrs: Laboratory Results - last 24 hr 06/11/16 06/11/16 Range/Units 07:25 07:35 WBC 14.6 H (4.0-10.0) x10^3/uL RBC 3.15 L (4.00-5.50) x10^6/uL Hgb 9.9 L (12.0-16.0) g/dL Hct 31.3 L (33.0-47.0) % MCV 99.4 H (78.0-93.0) fL MCH 31.4 (26.0-32.0) pg MCHC 31.6 L (32.0-36.0) g/dL RDW Coeff of Gabbie 16.5 H (10.0-15.0) % Plt Count 478 H (130-400) x10^3/uL Neut % (Auto) 85.8 H (50.0-80.0) % Lymph % (Auto) 7.8 L (25.0-50.0) % [facility] % (Auto) 6.2 (2.0-11.0) % Eos % (Auto) 0.1 (0.0-4.0) % Baso % (Auto) 0.1 L (0.2-1.2) % Sodium 144 (136-145) mmol/L Potassium 4.4 (3.5-5.1) mmol/L Chloride 106 (98-107) mmol/L Carbon Dioxide 31 (21-32) mmol/L BUN 16 (7-18) mg/dL Creatinine 1.2 H (0.55-1.02) mg/dL Est Cr Clr Drug Dosing 36.12 mL/min Estimated GFR (MDRD) 45 Glucose 78 (74-106) mg/dL Calcium 9.2 (8.5-10.1) mg/dL Med Orders - Current: Current Medications Acetaminophen (Tylenol) 650 mg PO Q4H PRN PRN Reason: Pain (Mild 1-3)/fever Last Admin: 06/10/16 14:22 Dose: 650 mg Albuterol (Proventil Neb Soln) 2.5 mg NEB Q2H PRN PRN Reason: Wheezing Last Admin: 06/11/16 09:22 Dose: 2.5 mg Albuterol (Proventil Neb Soln) 2.5 mg NEB Q4HRRT [facility] Last Admin: 06/11/16 06:59 Dose: 2.5 mg Amitriptyline HCl (Elavil) 25 mg PO BEDTIME [facility] Last Admin: 06/10/16 21:58 Dose: 25 mg Bupropion HCl (Wellbutrin Xl) 150 mg PO DAILY [facility] Last Admin: 06/11/16 08:07 Dose: 150 mg Cefdinir (Omnicef) 300 mg PO BID [facility] Last Admin: 06/11/16 08:07 Dose: 300 mg Clonazepam (Klonopin) 0.5 mg PO BEDTIME [facility] Last Admin: 06/10/16 21:59 Dose: 0.5 mg Cyanocobalamin (Vitamin B12) 250 mcg PO DAILY [facility] Last Admin: 06/11/16 08:07 Dose: 250 mcg Famotidine (Pepcid) 20 mg PO DAILY@1999 [facility] Last Admin: 06/10/16 21:59 Dose: 20 mg Fluoxetine HCl (Prozac) 20 mg PO DAILY [facility] Last Admin: 06/11/16 08:07 Dose: 20 mg Folic Acid (Folic Acid) 1 mg PO DAILY [facility] Last Admin: 06/11/16 08:07 Dose: 1 mg Gabapentin (Neurontin) 600 mg PO TID [facility] Last Admin: 06/11/16 08:07 Dose: 600 mg Hydroxychloroquine Sulfate (Plaquenil) 200 mg PO BID [facility] Last Admin: 06/11/16 08:07 Dose: 200 mg Mometasone Furoate/Formoterol Fumar (Dulera 200-5 Mcg) 2 puff IH BID [facility] Last Admin: 06/11/16 08:07 Dose: 2 puff Montelukast Sodium (Singulair) 10 mg PO DAILY [facility] Last Admin: 06/11/16 08:07 Dose: 10 mg Multivitamins/Minerals (Thera M Plus) 1 tab PO DAILY [facility] Last Admin: 06/11/16 08:07 Dose: 1 tab Prednisone (Prednisone) 40 mg PO WITHBREAKFAST [facility] Last Admin: 06/11/16 08:07 Dose: 40 mg Sodium Chloride (Saline Flush) 10 ml FLUSH ASDIRECTED PRN PRN Reason: Keep Vein Open Last Admin: 06/09/16 23:26 Dose: 10 ml Sodium Chloride (Saline Flush) 10 ml FLUSH ASDIRECTED PRN PRN Reason: Keep Vein Open Last Admin: 06/09/16 18:35 Dose: 10 ml Discontinued Medications Albuterol (Proventil Neb Soln) 2.5 mg NEB ONETIME ONE Stop: 06/09/16 16:33 Last Admin: 06/09/16 16:47 Dose: 2.5 mg Albuterol (Proventil Neb Soln) 2.5 mg NEB Q4HRRT [facility] Albuterol/Ipratropium (Duoneb 3.0-0.5 Mg/3 Ml) 3 ml NEB ONETIME ONE Stop: 06/09/16 16:02 Last Admin: 06/09/16 16:10 Dose: 3 ml Albuterol/Ipratropium (Duoneb 3.0-0.5 Mg/3 Ml) 3 ml NEB ONETIME ONE Stop: 06/09/16 16:48 Last Admin: 06/09/16 16:52 Dose: 3 ml Magnesium Sulfate 2 gm/ Premix 50 mls @ 25 mls/hr IV ONETIME ONE Stop: 06/09/16 18:04 Last Admin: 12/30/16 16:17 Dose: 25 mls/hr Piperacillin Sod/Tazobactam (Sod 4.5 gm/ Sodium Chloride) 100 mls @ 200 mls/hr IV ONETIME ONE Stop: 06/09/16 16:50 Last Admin: 06/09/16 16:47 Dose: 200 mls/hr Levofloxacin/Dextrose 750 mg/ (Premix) 150 mls @ 100 mls/hr IV ONETIME ONE Stop: 06/09/16 17:52 Azithromycin 500 mg/ Sodium (Chloride) 250 mls @ 250 mls/hr IV ONETIME ONE Stop: 06/09/16 17:26 Last Admin: 06/09/16 17:30 Dose: 250 mls/hr Sodium Chloride (Normal Saline) 100 mls @ 3 mls/sec IV ONETIME ONE Stop: 06/09/16 17:42 Last Admin: 06/09/16 18:04 Dose: 3 mls/sec Piperacillin Sod/Tazobactam (Sod 3.375 gm/ Sodium Chloride) 100 mls @ 25 mls/ hr IV Q8H [facility] Last Admin: 06/10/16 14:22 Dose: 25 mls/hr Iopamidol (Isovue-300 (61%)) 100 ml IVPUSH ONETIME ONE Stop: 06/09/16 17:42 Last Admin: 06/09/16 18:04 Dose: 100 ml Methylprednisolone Sodium Succinate (Solu-Medrol) 125 mg IV ONETIME ONE Stop: 06/09/16 16:05 Last Admin: 06/09/16 16:13 Dose: 125 mg Mometasone Furoate/Formoterol Fumar (Dulera 200-5 Mcg) 2 puff IH BIDRT [facility] Last Admin: 06/09/16 21:56 Dose: 2 puff - Exam General: alert, oriented, mild distress HEENT: Mucous membr. moist/pink Neck: supple, trachea midline. No: lymphadenopathy Lungs: Wheezing (diffusely) Cardiovascular: regular rate, regular rhythm, no murmurs Abdomen: bowel sounds present, soft, no tenderness, no distension Extremities: no edema, normal pulses Skin: warm, dry, intact - Problem List & Annotations (1) Acute hypercapnic respiratory failure SNOMED Code(s): 849298433 Code(s): J96.02 - ACUTE RESPIRATORY FAILURE WITH HYPERCAPNIA Status: Resolved Current Visit: Yes Annotation/Comment:: - ABG showed hypercapneic respiratory failure, likely related to asthma exacerbation with impending respiratory compromise. Patient was placed on BiPap with significant improvement in symptoms. - Is in mild respiratory distress this morning. Will do a few stacked nebs and see if this improves her situation. - Otherwise, we may need to restart BiPap again. (2) Community acquired pneumonia SNOMED Code(s): 714089851 Code(s): J18.9 - PNEUMONIA, UNSPECIFIED ORGANISM Status: Acute Current Visit: Yes Annotation/Comment:: - Patient has evidence of CAP based on history , exam, and CXR. Has not met any sepsis criteria. - Blood cultures negative thus far. - Due to improvement yesterday, she was transitioned to oral cefdinir and azithromycin last evening. - I do not think her status this morning represents a failure of antibiotics but reflects the fact that she did not get her neb treatments overnight. - IV fluid bolus PRN; otherwise, orals. (3) Asthma exacerbation SNOMED Code(s): 047759145 Code(s): J45.901 - UNSPECIFIED ASTHMA WITH (ACUTE) EXACERBATION Status: Acute Current Visit: Yes Annotation/Comment:: - Secondary to community acquired pneumonia and possible contribution from RA related lung disease. - Albuterol nebs q4 hours scheduled with q2 hours PRN. Patient will get at least 2, possibly 3, stacked nebs this morning. She was on continuous nebs when she was first seen in the ED and we may need to consider this as well, especially if BiPap is restarted. - She got IV steroids in the ED. Will do 40 mg prednisone daily for now. Patient will likely require a taper upon homegoing. - Continue Advair and singulair. (4) Immunosuppressed status SNOMED Code(s): 36615422 Code(s): D89.9 - DISORDER INVOLVING THE IMMUNE MECHANISM, UNSPECIFIED Status: Chronic Current Visit: Yes Annotation/Comment:: - Mild in relative terms. - Patient is not at risk for PJP pneumonia with this type of immunosuppresion and does not require antibiotic coverage for this. (5) Anemia SNOMED Code(s): 539919093 Code(s): D64.9 - ANEMIA, UNSPECIFIED Status: Chronic Current Visit: Yes Qualifiers: Anemia type: iron deficiency Iron deficiency anemia type: unspecified iron deficiency Qualified Code(s): D50.9 - Iron deficiency anemia, unspecified Annotation/Comment:: - Hgb stable today. - Recheck daily. (6) Coronary artery disease SNOMED Code(s): 15583111 Code(s): I25.10 - ATHSCL HEART DISEASE OF [place] CORONARY ARTERY W/O ANG PCTRS Status: Chronic Current Visit: Yes Qualifiers: Coronary Disease-Associated Artery/Lesion type: [place] artery [place] vs. transplanted heart: [place] heart Associated angina: without angina Qualified Code(s): I25.10 - Atherosclerotic heart disease of [place] coronary artery without angina pectoris Annotation/Comment:: - No evidence patient has any symptoms of cardiac ischemia. Symptoms this morning are more reflective of asthma. - If her chest tightness does not improve with the neb treatments, will consider ECG and trending of troponins. - Patient is not on any medications for this. (7) Depression SNOMED Code(s): 92588356 Code(s): F32.9 - MAJOR DEPRESSIVE DISORDER, SINGLE EPISODE, UNSPECIFIED Status: Chronic Current Visit: Yes Qualifiers: Depression Type: major depressive disorder Active/Remission status: in full remission Annotation/Comment:: - Continue home medications. (8) Restless leg syndrome SNOMED Code(s): 51806593 Code(s): G25.81 - RESTLESS LEGS SYNDROME Status: Chronic Current Visit: Yes Annotation/Comment:: - Not on medications specific to this but suspect gabapentin and clonazepam both help manage this. - Continue home medications. (9) Chronic kidney disease SNOMED Code(s): 114926355 Code(s): N18.9 - CHRONIC KIDNEY DISEASE, UNSPECIFIED Status: Chronic Current Visit: Yes Qualifiers: Chronic kidney disease stage: stage 3 (moderate) Qualified Code(s): N18.3 - Chronic kidney disease, stage 3 (moderate) Annotation/Comment:: - Creatinine stable. - Will monitor daily. - Renally dose medications. - Avoid nephrotoxins. (10) Rheumatoid arthritis SNOMED Code(s): 68091493 Code(s): M06.9 - RHEUMATOID ARTHRITIS, UNSPECIFIED Status: Chronic Current Visit: Yes Qualifiers: Rheumatoid arthritis location: multiple sites Rheumatoid factor presence: unspecified presence Qualified Code(s): M06.9 - Rheumatoid arthritis, unspecified Annotation/Comment:: - Symptoms currently well controlled. - She will not be due for her methotrexate while hospitalized. - Prednisone will be dosed as above. - Otherwise, continue home medications. (11) Osteoporosis SNOMED Code(s): 24781359 Code(s): M81.0 - AGE-RELATED OSTEOPOROSIS W/O CURRENT PATHOLOGICAL FRACTURE Status: Chronic Current Visit: Yes Annotation/Comment:: - Not on any medications for this. - Problem List Review Problem List Initiated/Reviewed/Updated: Yes - My Orders Last 24 Hours: My Active Orders 06/10/16 20:00 Cefdinir [Omnicef] 300 mg PO BID - Assessment Assessment:: 70 yo female admitted with community acquired pneumonia and asthma exacerbation. Not doing as well this morning as yesterday. - Plan Plan:: See further details under individual problems above. Continue PO cefdinir and azithromycin. Also continue prednisone and frequent nebulizer treatments. As above, will do a couple stacked nebs to see if this improves her situation. Supplemental oxygen as needed. If patient is not dismissed today, will start heparin 5,000 mg TID due to renal disease. Had planned for dismissal today but this depends on whether her respiratory status improves with the frequent nebs. That being said, if she still cannot go all night without a treatment, then she should probably remain admitted anyway. She is anxious to get home and her is anxious to have her home. Patient is DNR/DNI.
[2016-06-11] MEDS ORDERED: Albuterol 0.083% 2.5 MG/3 ML Neb Soln NEB STA (09:47)
[2016-06-11] MEDS ORDERED: Albuterol 0.083% 2.5 MG/3 ML Neb Soln NEB ONE (10:12)
[2016-06-11] MEDS ORDERED: predniSONE 20 MG Tab PO ONE (10:13)
[2016-06-11] MEDS: Enoxaparin 40 MG/0.4 ML Syringe SUBCUT SCH (11:04)
[2016-06-11] MEDS: Loperamide 2 MG Cap PO PRN (18:26)
[2016-06-11] MEDS: Acetaminophen 325 MG Tab PO PRN (20:47)
[2016-06-11] MEDS: Sodium Chloride 0.9% 10 ML Syringe FLUSH PRN (20:48)
[2016-06-11] MEDS: Amitriptyline 25 MG Tab PO SCH (20:48)
[2016-06-11] MEDS: ClonazePAM 0.5 MG Tab PO SCH (20:48)
[2016-06-11] MEDS: Famotidine 20 MG Tab PO SCH (20:48)
[2016-06-12] MEDS: Albuterol 0.083% 2.5 MG/3 ML Neb Soln NEB SCH ×2 (01:59→06:59)
[2016-06-12 05:46] VITALS: BP 149/76
[2016-06-12] MEDS ORDERED: predniSONE 20 MG Tab PO SCH (08:00)
[2016-06-12] MEDS: Loperamide 2 MG Cap PO PRN (08:19)
[2016-06-12] MEDS: Enoxaparin 40 MG/0.4 ML Syringe SUBCUT SCH (08:19)
[2016-06-12] MEDS: FLUoxetine 20 MG Cap PO SCH (08:20)
[2016-06-12] MEDS: Cyanocobalamin (Vitamin B12) 250 MCG Tab PO SCH (08:20)
[2016-06-12] MEDS: buPROPion 150 MG Tab.ER PO SCH (08:20)
[2016-06-12] MEDS: Cefdinir 300 MG Cap PO SCH (08:20)
[2016-06-12] MEDS: Gabapentin 300 MG Cap PO SCH (08:20)
[2016-06-12] MEDS: Folic Acid 1 MG Tab PO SCH (08:20)
[2016-06-12] MEDS: Hydroxychloroquine 200 MG Tab PO SCH (08:20)
[2016-06-12] MEDS: Multivitamins with Iron/Calcium/Folic Acid/Minerals Tab PO SCH (08:20)
[2016-06-12] MEDS: Montelukast 10 MG Tab PO SCH (08:20)
[2016-06-12] MEDS: Formoterol/Mometasone 200-5 MCG 8.8 GM Inhaler IH SCH (08:21)
[2016-06-12 08:33] LABS: EOSINOPHILS PERCENT AUTO 0.2 % (0.0-4.0); HEMOGLOBIN 9.7 g/dL (12.0-16.0); LYMPHOCYTES PERCENT AUTO 10.2 % (25.0-50.0); MEAN CORPUSCULAR HEMOGLOBIN 31.6 pg (26.0-32.0); MEAN CORPUSCULAR HGB CONC 31.3 g/dL (32.0-36.0); MONOCYTES PERCENT AUTO 5.3 % (2.0-11.0); RDW CV 16.5 % (10.0-15.0); RED BLOOD CELL COUNT 3.07 x10^6/uL (4.00-5.50)
[2016-06-12 08:42] LABS: NEUTROPHILS PERCENT AUTO 84.3 % (50.0-80.0)
[2016-06-12 08:54] LABS: CALCIUM 8.9 mg/dL (8.5-10.1); CREATININE 1.3 mg/dL (0.55-1.02); EST CRCL DRUG DOSING (CG) 33.34 mL/min
--- NOTE | 2016-06-12 09:01 | PCM.DCSUM1 ---
Discharge Summary - Hospital Course HPI Initial Comments: Mrs. Tyler is a 70 yo female who was transferred to the ED from clinic for evaluation of respiratory distress. She had developed a worsening cough or shortness of breath over the preceding 2 weeks but was on vacation in [place] until the day prior to presentation. Brief History: She had been treated for an asthma exacerbation the month prior and her symptoms had improved. However, while on vacation, her cough and shortness of breath progressively worsened. She was requiring her rescue inhaler 3-4 times/day which is very unusual for her. - Discharge Data Discharge Date: 06/12/16 Discharge Disposition: Home, Self-Care 01 Condition: Good - Discharge Diagnosis/Problem(s) (1) Acute hypercapnic respiratory failure SNOMED Code(s): 258898240 ICD Code: J96.02 - ACUTE RESPIRATORY FAILURE WITH HYPERCAPNIA Status: Resolved Current Visit: Yes Problem Details: ABG on ED evaluation showed hypercapneic respiratory failure, likely related to asthma exacerbation with impending respiratory compromise. Patient was placed on BiPap with significant improvement in symptoms. She had some respiratory distress yesterday morning due to delayed nebulizer administration but is doing well on the day of dismissal. (2) Community acquired pneumonia SNOMED Code(s): 163594419 ICD Code: J18.9 - PNEUMONIA, UNSPECIFIED ORGANISM Status: Acute Current Visit: Yes Problem Details: Patient diagnosed with pneumonia based on history , exam, and chest x-ray findings of a left lower lobe infiltrate. She has never met any sepsis criteria. Blood cultures were negative. She was transitioned to oral antibiotics >24 hours prior to dismissal without any recurrence of fever. (3) Asthma exacerbation SNOMED Code(s): 141502218 ICD Code: J45.901 - UNSPECIFIED ASTHMA WITH (ACUTE) EXACERBATION Status: Acute Current Visit: Yes Problem Details: Patient presented with significant wheezing and shortness of breath. Suspect her asthma exacerbation is secondary to community acquired pneumonia and possible contribution from RA related lung disease. She was given frequent nebulizer treatments with improvement in wheezing and dyspnea. She got IV steroids in the ED. She had then been on 40 mg prednisone daily but was increased to 60 mg daily when she was having more respiratory difficulty yesterday. Her Advair and singulair were continued. (4) Immunosuppressed status SNOMED Code(s): 66372591 ICD Code: D89.9 - DISORDER INVOLVING THE IMMUNE MECHANISM, UNSPECIFIED Status: Chronic Current Visit: Yes Problem Details: Mild in relative terms. Patient is not at risk for atypical pneumonia with this type of immunosuppresion and does not require antibiotic coverage for pneumocystis. (5) Anemia SNOMED Code(s): 273737174 ICD Code: D64.9 - ANEMIA, UNSPECIFIED Status: Chronic Current Visit: Yes Problem Details: She has chronic anemia but her hemoglobin had dropped 1 gram during admission. It subsequently remained stable and can be rechecked as an outpatient. Qualifiers: Anemia type: iron deficiency Iron deficiency anemia type: unspecified iron deficiency Qualified Code(s): D50.9 - Iron deficiency anemia, unspecified (6) Coronary artery disease SNOMED Code(s): 82183509 ICD Code: I25.10 - ATHSCL HEART DISEASE OF [place] CORONARY ARTERY W/O ANG PCTRS Status: Chronic Current Visit: Yes Problem Details: No evidence patient has any symptoms of cardiac ischemia contributing to her hospitalization. Qualifiers: Coronary Disease-Associated Artery/Lesion type: [place] artery [place] vs. transplanted heart: [place] heart Associated angina: without angina Qualified Code(s): I25.10 - Atherosclerotic heart disease of [place] coronary artery without angina pectoris (7) Depression SNOMED Code(s): 27414646 ICD Code: F32.9 - MAJOR DEPRESSIVE DISORDER, SINGLE EPISODE, UNSPECIFIED Status: Chronic Current Visit: Yes Problem Details: Home medications continued. Qualifiers: Depression Type: major depressive disorder Active/Remission status: in full remission (8) Restless leg syndrome SNOMED Code(s): 74163789 ICD Code: G25.81 - RESTLESS LEGS SYNDROME Status: Chronic Current Visit: Yes Problem Details: Home medications continued. (9) Chronic kidney disease SNOMED Code(s): 345115059 ICD Code: N18.9 - CHRONIC KIDNEY DISEASE, UNSPECIFIED Status: Chronic Current Visit: Yes Problem Details: Creatinine stable during admission. Qualifiers: Chronic kidney disease stage: stage 3 (moderate) Qualified Code(s): N18.3 - Chronic kidney disease, stage 3 (moderate) (10) Rheumatoid arthritis SNOMED Code(s): 67475598 ICD Code: M06.9 - RHEUMATOID ARTHRITIS, UNSPECIFIED Status: Chronic Current Visit: Yes Problem Details: Symptoms currently well controlled. She was not due for her methotrexate while hospitalized. Her prednisone was dosed as above. Qualifiers: Rheumatoid arthritis location: multiple sites Rheumatoid factor presence: unspecified presence Qualified Code(s): M06.9 - Rheumatoid arthritis, unspecified (11) Osteoporosis SNOMED Code(s): 26911970 ICD Code: M81.0 - AGE-RELATED OSTEOPOROSIS W/O CURRENT PATHOLOGICAL FRACTURE Status: Chronic Current Visit: Yes Problem Details: Not on any medications for this. - Patient Summary/Data Complications: None. Consults: None. Labs Pending at D/C: None. Recommended Follow-up Testing/Procedures: Needs repeat CBC at hospital follow-up. Hospital Course: Please see details under each problem as above. She was continued on IV antibiotics, frequent nebulizers, and oral prednisone. By the morning after admission, her respiratory status had significantly improved. She was transitioned to oral antibiotics later that night. She had some increased shortness of breath and wheezing the day prior to admission felt to be secondary to delayed nebulizer administration. This improved after 3 stacked nebulizer treatments. Her prednisone dose was also increased but her antibiotics were not changed. She feels well this morning and ready to be dismissed home. - Patient Instructions Diet: Usual Diet as Tolerated Activity: As Tolerated Driving: May Drive Today Showering/Bathing: May Shower Notify Provider of: Fever Other/Special Instructions: increased shortness of breath, cough, wheezing - Discharge Plan Prescriptions/Med Rec: Cefdinir [IJD: Cefdinir] 300 mg PO BID #12 capsule Prednisone [IJD: predniSONE] 60 mg PO WITHBREAKFAST #15 tablet Home Medications: Home Meds Amitriptyline [Elavil] 25 mg PO BEDTIME 02/09/16 [History] Calcium Carb & Citrate/Vit D3 [Citracal + D ER] 1 tab PO BID 02/09/16 [History] Cyanocobalamin (Vitamin B-12) [Cyanocobalamin Injection] 1,000 mcg IJ Q30D 02/08 [History] Cyanocobalamin (Vitamin B-12) [Vitamin B-12] 2 tab PO DAILY 02/09/16 [History] FLUoxetine HCl [Fluoxetine HCl] 20 mg PO DAILY 02/09/16 [History] Fluticasone/Salmeterol [Advair 250-50 Diskus] 1 puff PO BID 02/09/16 [History] Folic Acid 1 mg PO DAILY 02/09/16 [History] Gabapentin [Neurontin] 600 mg PO TID 02/09/16 [History] Hydroxychloroquine [Plaquenil] 200 mg PO BID 02/09/16 [History] Magnesium Oxide/Mag AA Chelate [Magnesium] 600 mg PO BID 02/09/16 [History] Methotrexate Sodium [Methotrexate] 6 tab PO WEEKLY 02/09/16 [History] Methylphenidate HCl 10 mg PO TID PRN 02/09/16 [History] Montelukast [Singulair] 10 mg PO DAILY 02/09/16 [History] Multivitamin with Minerals [Multiple Vitamin] 1 tab PO DAILY 02/09/16 [History] Niacin 1 tab PO DAILY 02/09/16 [History] Prochlorperazine Maleate [Compazine] 10 mg PO Q6HR PRN 02/09/16 [History] Ranitidine [Zantac] 150 mg PO BID 02/09/16 [History] buPROPion HCl [Wellbutrin Xl] 150 mg PO DAILY 02/09/16 [History] clonazePAM [Clonazepam] 1 tab PO BEDTIME 02/09/16 [History] Cholecalciferol (Vitamin D3) [Vitamin D3] 4,000 unit PO DAILY 06/10/16 [History] Loperamide [Imodium] 4 mg PO Q4H PRN 06/10/16 [History] SUMAtriptan [Imitrex] 25 mg PO DAILY PRN 06/10/16 [History] Albuterol [Ventolin HFA] 4 inh INH Q4HR #0 06/12/16 [Rx] Cefdinir [IJD: Cefdinir] 300 mg PO BID #12 capsule 06/12/16 [Rx] Prednisone [IJD: predniSONE] 60 mg PO WITHBREAKFAST #15 tablet 06/12/16 [Rx] Forms: ED Department Discharge Referrals: Lupe Weller DO [Primary Care Provider] - 06/14/16 - Discharge Summary/Plan Comment DC Time >30 min.: No - General Info Date of Service: 06/12/16 Subjective Update: Doing well this morning. Chest pain is resolved. Shortness of breath and wheezing have improved. No fever or chills. No abdominal pain, nausea, vomiting , or diarrhea. - Review of Systems General: Reports: no symptoms HEENT: Reports: no symptoms Pulmonary: Reports: shortness of breath, cough, wheezing Cardiovascular: Reports: no symptoms Gastrointestinal: Reports: No symptoms Genitourinary: Reports: no symptoms Skin: Reports: no symptoms - Patient Data Vitals - Most Recent: Last Vital Signs Temp 37.0 C 06/12/16 05:45 Pulse 74 06/12/16 05:45 Resp 18 06/12/16 05:45 BP 149/76 H 06/12/16 05:45 Pulse Ox 97 06/12/16 07:00 Weight - Most Recent: 51.71 kg I&O - Last 24 hours: Intake & Output 06/11/16 06/12/16 06/12/16 22:59 06:59 14:59 Intake Total 650 300 140 Balance 650 300 140 Lab Results - Last 24 hrs: Laboratory Results - last 24 hr 06/12/16 Range/Units 08:00 WBC 11.4 H (4.0-10.0) x10^3/uL RBC 3.07 L (4.00-5.50) x10^6/uL Hgb 9.7 L (12.0-16.0) g/dL Hct 31.0 L (33.0-47.0) % MCV 101.0 H (78.0-93.0) fL MCH 31.6 (26.0-32.0) pg MCHC 31.3 L (32.0-36.0) g/dL RDW Coeff of Gabbie 16.5 H (10.0-15.0) % Plt Count 504 H (130-400) x10^3/uL Neut % (Auto) 84.3 H (50.0-80.0) % Lymph % (Auto) 10.2 L (25.0-50.0) % Holt % (Auto) 5.3 (2.0-11.0) % Eos % (Auto) 0.2 (0.0-4.0) % Baso % (Auto) 0.0 L (0.2-1.2) % Med Orders - Current: Current Medications Acetaminophen (Tylenol) 650 mg PO Q4H PRN PRN Reason: Pain (Mild 1-3)/fever Last Admin: 06/11/16 20:47 Dose: 650 mg Albuterol (Proventil Neb Soln) 2.5 mg NEB Q2H PRN PRN Reason: Wheezing Last Admin: 06/11/16 09:22 Dose: 2.5 mg Albuterol (Proventil Neb Soln) 2.5 mg NEB Q4HRRT [facility] Last Admin: 06/12/16 06:59 Dose: 2.5 mg Amitriptyline HCl (Elavil) 25 mg PO BEDTIME [facility] Last Admin: 06/11/16 20:48 Dose: 25 mg Bupropion HCl (Wellbutrin Xl) 150 mg PO DAILY [facility] Last Admin: 06/12/16 08:20 Dose: 150 mg Cefdinir (Omnicef) 300 mg PO BID [facility] Last Admin: 06/12/16 08:20 Dose: 300 mg Clonazepam (Klonopin) 0.5 mg PO BEDTIME [facility] Last Admin: 06/11/16 20:48 Dose: 0.5 mg Cyanocobalamin (Vitamin B12) 250 mcg PO DAILY [facility] Last Admin: 06/12/16 08:20 Dose: 250 mcg Enoxaparin Sodium (Lovenox) 40 mg SUBCUT DAILY [facility] Last Admin: 06/12/16 08:19 Dose: 40 mg Famotidine (Pepcid) 20 mg PO DAILY@1999 [facility] Last Admin: 06/11/16 20:48 Dose: 20 mg Fluoxetine HCl (Prozac) 20 mg PO DAILY [facility] Last Admin: 06/12/16 08:20 Dose: 20 mg Folic Acid (Folic Acid) 1 mg PO DAILY [facility] Last Admin: 06/12/16 08:20 Dose: 1 mg Gabapentin (Neurontin) 600 mg PO TID [facility] Last Admin: 06/12/16 08:20 Dose: 600 mg Hydroxychloroquine Sulfate (Plaquenil) 200 mg PO BID [facility] Last Admin: 06/12/16 08:20 Dose: 200 mg Loperamide HCl (Imodium) 2 mg PO Q6H PRN PRN Reason: Diarrhea Last Admin: 06/12/16 08:19 Dose: 2 mg Mometasone Furoate/Formoterol Fumar (Dulera 200-5 Mcg) 2 puff IH BID [facility] Last Admin: 06/12/16 08:21 Dose: 2 puff Montelukast Sodium (Singulair) 10 mg PO DAILY [facility] Last Admin: 06/12/16 08:20 Dose: 10 mg Multivitamins/Minerals (Thera M Plus) 1 tab PO DAILY [facility] Last Admin: 06/12/16 08:20 Dose: 1 tab Prednisone (Prednisone) 60 mg PO WITHBREAKFAST [facility] Last Admin: 06/12/16 08:20 Dose: 60 mg Sodium Chloride (Saline Flush) 10 ml FLUSH ASDIRECTED PRN PRN Reason: Keep Vein Open Last Admin: 06/11/16 20:48 Dose: 10 ml Sodium Chloride (Saline Flush) 10 ml FLUSH ASDIRECTED PRN PRN Reason: Keep Vein Open Last Admin: 06/09/16 18:35 Dose: 10 ml Discontinued Medications Albuterol (Proventil Neb Soln) 2.5 mg NEB ONETIME ONE Stop: 06/09/16 16:33 Last Admin: 06/09/16 16:47 Dose: 2.5 mg Albuterol (Proventil Neb Soln) 2.5 mg NEB Q4HRRT [facility] Albuterol (Proventil Neb Soln) 2.5 mg NEB ONETIME STA Stop: 06/11/16 09:48 Last Admin: 06/11/16 09:35 Dose: 2.5 mg Albuterol (Proventil Neb Soln) 2.5 mg NEB ONETIME ONE Stop: 06/11/16 10:13 Last Admin: 06/11/16 10:00 Dose: 2.5 mg Albuterol/Ipratropium (Duoneb 3.0-0.5 Mg/3 Ml) 3 ml NEB ONETIME ONE Stop: 06/09/16 16:02 Last Admin: 06/09/16 16:10 Dose: 3 ml Albuterol/Ipratropium (Duoneb 3.0-0.5 Mg/3 Ml) 3 ml NEB ONETIME ONE Stop: 06/09/16 16:48 Last Admin: 06/09/16 16:52 Dose: 3 ml Magnesium Sulfate 2 gm/ Premix 50 mls @ 25 mls/hr IV ONETIME ONE Stop: 06/09/16 18:04 Last Admin: 06/09/16 16:17 Dose: 25 mls/hr Piperacillin Sod/Tazobactam (Sod 4.5 gm/ Sodium Chloride) 100 mls @ 200 mls/hr IV ONETIME ONE Stop: 06/09/16 16:50 Last Admin: 12/30/16 16:47 Dose: 200 mls/hr Levofloxacin/Dextrose 750 mg/ (Premix) 150 mls @ 100 mls/hr IV ONETIME ONE Stop: 06/09/16 17:52 Azithromycin 500 mg/ Sodium (Chloride) 250 mls @ 250 mls/hr IV ONETIME ONE Stop: 06/09/16 17:26 Last Admin: 06/09/16 17:30 Dose: 250 mls/hr Sodium Chloride (Normal Saline) 100 mls @ 3 mls/sec IV ONETIME ONE Stop: 06/09/16 17:42 Last Admin: 06/09/16 18:04 Dose: 3 mls/sec Piperacillin Sod/Tazobactam (Sod 3.375 gm/ Sodium Chloride) 100 mls @ 25 mls/ hr IV Q8H [facility] Last Admin: 06/10/16 14:22 Dose: 25 mls/hr Iopamidol (Isovue-300 (61%)) 100 ml IVPUSH ONETIME ONE Stop: 06/09/16 17:42 Last Admin: 06/09/16 18:04 Dose: 100 ml Methylprednisolone Sodium Succinate (Solu-Medrol) 125 mg IV ONETIME ONE Stop: 06/09/16 16:05 Last Admin: 06/09/16 16:13 Dose: 125 mg Mometasone Furoate/Formoterol Fumar (Dulera 200-5 Mcg) 2 puff IH BIDRT [facility] Last Admin: 06/09/16 21:56 Dose: 2 puff Prednisone (Prednisone) 40 mg PO WITHBREAKFAST [facility] Last Admin: 06/11/16 08:07 Dose: 40 mg Prednisone (Prednisone) 20 mg PO ONETIME ONE Stop: 06/11/16 10:14 Last Admin: 06/11/16 11:04 Dose: 20 mg - Exam General: Reports: alert, oriented, cooperative, no acute distress HEENT: Reports: Mucous membr. moist/pink Neck: Reports: supple, trachea midline. Denies: lymphadenopathy Lungs: Reports: Clear to auscultation, Normal respiratory effort Cardiovascular: Reports: regular rate, regular rhythm, no murmurs Abdomen: Reports: bowel sounds present, soft, no tenderness, no distension Extremities: Reports: no edema Skin: Reports: warm, dry, intact *Q Meaningful Use (DIS) - VTE *Q VTE Criteria *Q: VTE Anticoagulation Contraindications: Med/tx not indicated/need - Stroke *Q Stroke Criteria *Q: - AMI *Q AMI Criteria *Q:
--- NOTE | 2016-06-13 09:33 | ER ---
Date of Service: 06/09/2016 SUBJECTIVE: The patient presents to emergency room with complaints of respiratory distress. She was initially seen in the clinic with severe respiratory distress and was brought over to the emergency room for further evaluation and care. She did have a chest x-ray at the clinic which did show, what appears to be a right lower lobe infiltrate. The patient does have an underlying history of asthma. She states that she has never required mechanical ventilation or ICU admission for asthma exacerbations in the past. The patient's states that yesterday they drove from [place] to [place], after spending time out there for the holidays, so she spent a lot of time in a car, which does put her at increased risk for pulmonary embolism. She states that she has not recently been hospitalized or/and has not recently been a resident to a long-term care facility. PAST MEDICAL HISTORY: 1. Asthma. 2. Rheumatoid arthritis. 3. Sleep apnea. 4. valvular heart disease of unknown ideology. Her states that she has a history of what sounds like stenosis of likely of her mitral valve. 5. Chronic kidney disease. 6. Periodic limb movement disorder. 7. Hyperprolactinemia. 8. Vitamin D deficiency. 9. Vitamin B12 deficiency. 10.Iron deficiency anemia. 11.RLS. 12.Major depressive disorder. 13.Osteoporosis. 14.Migraine headaches. MEDICATIONS: 1. Keflex 500 mg. 2. Methotrexate 2.5 mg 2 tablets p.o. weekly. 3. Compazine 10 mg p.o. every 6 hours p.r.n. 4. Niacin 1 daily. 5. Multivitamin 1 daily. 6. Singulair 10 mg daily. 7. Zantac 150 mg p.o. b.i.d. 8. Percocet 5/325 one every 4 hours p.r.n. 9. Clonazepam 0.5 mg 1 tablet at bedtime. 10.Wellbutrin XL 150 mg daily. 11.Pataday 1 drop to both eyes daily. 12.Mirapex 0.25 mg p.o. b.i.d. 13.Flonase 2 sprays to both nares daily. 14.Ferrous gluconate 324 mg p.o. daily. 15.Allopurinol 150 mg p.o. at bedtime. 16.Mobic 7.5 mg p.o. daily. 17.Citracal 1 tablet p.o. b.i.d. 18.Elavil 25 mg p.o. at bedtime. 19.Ventolin HFA 2 puffs inhaled q.i.d. p.r.n. 20.Vitamin B12 1000 mcg inject every 30 days. 21.Advair 250/50 one inhalation p.o. b.i.d. 22.Fluoxetine 20 mg p.o. daily. 23.Colace 100 mg p.o. daily. 24.Plaquenil 200 mg p.o. b.i.d. 25.Neurontin 600 mg p.o. t.i.d. ALLERGIES: 1. Reglan. 2. Aspirin. 3. Sulfa. REVIEW OF SYSTEMS: GENERAL: Denies any fever, chill. HEENT: No sore throat, rhinorrhea, or congestion. RESPIRATORY: Positive for respiratory distress, worsening yesterday and today, but she states that she has been experiencing a cough for approximately 3 weeks. CARDIAC: Denies any substernal chest pain. GI: No nausea, vomiting, or diarrhea. No melena, hematochezia, or hematemesis. : Denies any dysuria. MUSCULOSKELETAL: No myalgias or arthralgias. Denies any increased peripheral edema. NEUROLOGIC: No fainting, blackouts, or lightheadedness. PHYSICAL EXAMINATION: General: This is a 70-year-old female patient, in [id number] amount of respiratory distress. VITAL SIGNS: On arrival to the ER, blood pressure is 115/72, heart rate was 83, respiratory rate was in the low-to-mid 30s, O2 saturation was 100%. SKIN: Warm, pale, and dry. HEENT: Head was normocephalic. Mouth, oral mucosa was somewhat dry. No erythema or exudate noted in the hypopharynx. NECK: Supple without masses. There is no lymphadenopathy. No JVD noted. LUNGS: Diminished with expiratory wheezing. Her lung sounds did improve after numerous nebulizer treatments and other interventions. HEART: Regular rate and rhythm. ABDOMEN: Soft, nontender. There is no hepatosplenomegaly noted. There is no masses noted. EXTREMITIES: Without edema. NEUROLOGIC: She is awake and alert, answers all questions appropriately. Her speech is fluent. RESPIRATORY: Initially the patient was speaking in 3 to 4 word sentences and did have marked shortness of breath. LABORATORY DATA: A 12-lead EKG was obtained showing a sinus rhythm without any acute ST or T-wave abnormalities. PA and lateral chest x-ray was obtained. She did have evidence of what appears to be a right lower lobe pneumonia. CBC was obtained, WBCs 10.1, hemoglobin is 10.8, platelets are 490, D-dimer was positive at 1.42. ABGs pH was 7.71, pCO2 was 16, PO2 was 96, bicarb was 21, CO2 was 22, O2 saturation was 99%. Chemistry comprehensive metabolic panel was obtained, sodium is 142, potassium is 4.9, chloride is 102, bicarb is 26, BUN is 16, creatinine is 1.3, creatinine clearance is 33.34, GFR is 41, glucose is 80, lactic acid is 2.7, calcium is 9.6, corrected calcium is 10.48, total bilirubin is 0.6, AST is 29, ALT is 26, alkaline phosphatase is 110, CK is 111, CK-MB is 1.5, troponin was less than 0.017, C-reactive protein is 11.8, BNP is 426, total protein is 6.9, albumin is 2.9. CT angiogram of the patient's chest was obtained. No evidence of pulmonary embolism was noted. There was evidence of scattered inflammatory changes likely consistent with her rheumatoid arthritis. She also again did have evidence of right lower lobe infiltrate as well. EMERGENCY ROOM COURSE: IV access was established x2. The patient was given continuous DuoNeb and albuterol breathing treatments. She was given Solu-Medrol 125 mg IV. I discussed code status with the patient and her and they stated that she did not wish to be intubated. The patient was given 2 g of magnesium sulfate IV, and was started on Zosyn 4.5 mg IV, and azithromycin 500 mg IV to cover for atypical bacteria. Initially wanted to start the patient on Levaquin, but her refused this for her, because he has had issues with ruptured Achilles tendon. The patient was started on BiPAP at 10/5 cm of water. She was on BiPAP for approximately 1 hour while she was getting nebulizer treatments, which likely did help get the medication into the deeper small airways. Her respiratory status improved significantly and the patient was requesting to go home, as her condition improved significantly. The patient's CURB score was 3 on initial evaluation in the emergency room, and decision was made that the patient will be admitted acutely to our facility by Dr. Barger. ASSESSMENT: Resolving respiratory failure secondary to community-acquired pneumonia and asthma exacerbation. PLAN: The patient will be again admitted to our facility. She does have a code 2 code status. I did discuss findings with the patient and her . All questions were answered. MWK: 06/09/2016 19:07:47 MODL: 06/09/2016 20:23:51 /[id number]
== END 2016-06-12 10:10 | disposition home or self-care (01) | DRG 189 ==
LOC: VM.ED 15:53 → VM.MS 18:51
PROVIDERS: ADMIT Family Medicine; ATTEND Internal Medicine
DX: J96.90 Respiratory failure, unspecified, unspecified whether with hypoxia or hypercapnia (principal); J96.02 Acute respiratory failure with hypercapnia; J18.9 Pneumonia, unspecified organism; J45.901 Unspecified asthma with (acute) exacerbation; D89.9 Disorder involving the immune mechanism, unspecified; D50.9 Iron deficiency anemia, unspecified; I25.10 Atherosclerotic heart disease of native coronary artery without angina pectoris; F32.9 Major depressive disorder, single episode, unspecified; G25.81 Restless legs syndrome; N18.3 Chronic kidney disease, stage 3 (moderate); M06.9 Rheumatoid arthritis, unspecified; M81.0 Age-related osteoporosis without current pathological fracture; G89.29 Other chronic pain; E53.8 Deficiency of other specified B group vitamins; E55.9 Vitamin D deficiency, unspecified; Z85.828 Personal history of other malignant neoplasm of skin; Z66 Do not resuscitate; G47.33 Obstructive sleep apnea (adult) (pediatric)
CPT/HCPCS: 36415; 36600; 71275; 80053; 82550; 82553; 82803; 83605; 83880; 84484; 85025; 85379; 86140; 87040 ×2; 93005; 94640 ×3; 94660; 96365; 96367; 96368; 96375; 99285; J0456; J2543; J2930; J7050 ×6; J7620; Q9967; 80048; 94760; 99284-GF; A9270-GY; J1650

== ENCOUNTER 2017-04-07 11:14 | Emergency (ER) | payer MEDICARE, OTHER ==
[2017-04-07] MEDS ORDERED: Colchicine 0.6 MG Tab PO ONE (11:22)
[2017-04-07] MEDS ORDERED: Colchicine 0.6 MG Tab PO SCH (11:30)
--- NOTE | 2017-04-07 11:40 | EDM.PDOC ---
ED HPI GENERAL MEDICAL PROBLEM - General Stated Complaint: gout flare Time Seen by Provider: 04/07/17 11:15 Source of Information: Reports: Patient History Limitations: Reports: No Limitations - History of Present Illness INITIAL COMMENTS - FREE TEXT/NARRATIVE: Patient states she has long-standing history of rheumatoid arthritis doctor's quite a bit with her rheumatoid specialist out [facility]. She just had a checkup 3 weeks ago and obtained her injections without any difficulty patient's been feeling fairly well since then however yesterday she woke up with her toes hurting started to have increased redness then her ankles her knees and now her wrists are hurting today she is having difficulty walking because of the pain she has had a flareup before 5-10 years ago and she says it feels exactly the same pain in her wrists and her knees are related to the same equivalent of pain that she hasn't shows a flareup of her arthritis patient denies having any other illnesses no cough fever diarrhea GI upset chest discomfort shortness of breath Onset: Gradual Onset Date: 04/06/17 Location: Reports: Other (bilateral feet, knee pain, wrist pain ) Quality: Reports: Throbbing Severity: Moderate Improves with: Reports: Cold Therapy, Immobilization Worsens with: Reports: Movement Associated Symptoms: Denies: Confusion, Chest Pain, Fever/Chills, Headaches, Loss of Appetite, Nausea/Vomiting, Rash, Seizure, Shortness of Breath, Weakness - Related Data Allergies Allergy/AdvReac Type Severity Reaction Status Date / Time Sulfa (Sulfonamide Allergy Hives Verified 04/07/17 11:23 Antibiotics) aspirin AdvReac Bleeding Verified 04/07/17 11:23 metoclopramide [From Reglan] AdvReac Numbness Verified 04/07/17 11:23 Home Meds: Home Meds Amitriptyline [Elavil] 25 mg PO BEDTIME 02/09/16 [History] Calcium Carb & Citrate/Vit D3 [Citracal + D ER] 1 tab PO BID 02/09/16 [History] Cyanocobalamin (Vitamin B-12) [Cyanocobalamin Injection] 1,000 mcg IJ ASDIRECTED 02/09/16 [History] Cyanocobalamin (Vitamin B-12) [Vitamin B-12] 2 tab PO DAILY 02/09/16 [History] FLUoxetine HCl [Fluoxetine HCl] 20 mg PO DAILY 02/09/16 [History] Fluticasone/Salmeterol [Advair 250-50 Diskus] 1 puff PO BID 02/09/16 [History] Folic Acid 1 mg PO DAILY 02/09/16 [History] Gabapentin [Neurontin] 600 mg PO TID 02/09/16 [History] Hydroxychloroquine [Plaquenil] 200 mg PO BID 02/09/16 [History] Magnesium Oxide/Mag AA Chelate [Magnesium] 600 mg PO BID 02/09/16 [History] Methotrexate Sodium [Methotrexate] 6 tab PO WEEKLY 02/09/16 [History] Methylphenidate HCl 10 mg PO TID PRN 02/09/16 [History] Montelukast [Singulair] 10 mg PO DAILY 02/09/16 [History] Multivitamin with Minerals [Multiple Vitamin] 1 tab PO DAILY 02/09/16 [History] Niacin 500 mg PO DAILY 02/09/16 [History] Prochlorperazine Maleate [Compazine] 10 mg PO Q6HR PRN 02/09/16 [History] Ranitidine [Zantac] 150 mg PO BID 02/09/16 [History] buPROPion HCl [Wellbutrin Xl] 150 mg PO DAILY 02/09/16 [History] clonazePAM [Clonazepam] 0.5 mg PO BEDTIME 02/09/16 [History] Cholecalciferol (Vitamin D3) [Vitamin D3] 4,000 unit PO DAILY 06/10/16 [History] Loperamide [Imodium] 4 mg PO Q4H PRN 06/10/16 [History] SUMAtriptan [Imitrex] 25 mg PO DAILY PRN 06/10/16 [History] Albuterol [Ventolin HFA] 4 inh INH Q4HR PRN 06/20/16 [History] Prednisone [IJD: predniSONE] 5 mg PO WITHBREAKFAST 07/04/16 [History] Cefdinir [IJD: Cefdinir] 300 mg PO BID PRN 09/18/16 [History] Ibuprofen [Motrin Ib] 200 mg PO Q4H PRN 09/18/16 [History] oxyCODONE 5 mg PO Q4H PRN 09/18/16 [History] Ketamine HCl 10 mg PO TID 14 Days #210 ml 03/13/17 [Rx] Ketamine HCl 25 mg PO TID 14 Days #210 ml 03/23/17 [Rx] Colchicine 0.6 mg PO ASDIRECTED PRN #4 tablet 04/07/17 [Rx] Meloxicam 7.5 mg PO DAILY 5 Days #5 tablet 04/07/17 [Rx] Past Medical History HEENT History: Reports: None Other HEENT History: senile nuclear sclerosis. dry eye syndrome. bilateral anterior basement membrane dystrophy. 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 sacroiliac dysfunction. degenerative joint disease. polyarthralgia Neurological History: Reports: Migraines, Other (See Below) Other Neuro History: Restless legs syndrome. periodic limb movment disorder. hypersomnia. sciatica Psychiatric History: Reports: Depression Endocrine/Metabolic History: Reports: Osteoporosis, Vitamin D Deficiency Other Endocrine/Metabolic History: Hyperprolactinemia. hypoglycemia. vitamin b -12 deficiency Hematologic History: Reports: Anemia, B12 Deficiency, Iron Deficiency Immunologic History: Reports: Immunosuppression Oncologic (Cancer) History: Reports: Squamous Cell Carcinoma Dermatologic History: Reports: None Other Dermatologic History: hirsutism - Infectious Disease History Infectious Disease History: Reports: None - Past Surgical History HEENT Surgical History: Reports: Adenoidectomy, Cataract Surgery, Tonsillectomy GI Surgical History: Reports: Bariatric Procedure, Colon Female Surgical History: Reports: Hysterectomy, Other (See Below) Musculoskeletal Surgical History: Reports: Other (See Below) Social & Family History - Family History Family Medical History: Noncontributory - Tobacco Use Smoking Status *Q: Never Smoker Second Hand Smoke Exposure: No - Caffeine Use Caffeine Use: Reports: None - Recreational Drug Use Recreational Drug Use: No - Sexual History Sexual History: Reports: Single Partner - Living Situation & Occupation Living situation: Reports: , with Spouse Occupation: Retired ED ROS GENERAL - Review of Systems Review Of Systems: See Below Constitutional: Reports: No Symptoms HEENT: Reports: No Symptoms Respiratory: Reports: No Symptoms Cardiovascular: Reports: No Symptoms Endocrine: Reports: No Symptoms GI/Abdominal: Reports: No Symptoms : Reports: No Symptoms Musculoskeletal: Reports: Hand Pain, Foot Pain, Joint Pain Skin: Reports: Other (redness of her toes and warmth ) ED EXAM, GENERAL - Physical Exam Exam: See Below Exam Limited By: No Limitations General Appearance: Alert, WD/WN, No Apparent Distress Respiratory/Chest: No Respiratory Distress Cardiovascular: Normal Peripheral Pulses GI/Abdominal: Normal Bowel Sounds, Soft, Non-Tender Extremities: Leg Pain, Increased Warmth (bilateral toes. pailful to touch ), Redness (bilateral toes. Painful to touch ), Other (knee pain no redness, warmth noted or swelling. bilateral wrist pain. No redness, swelling or warmth noted) Neurological: Alert, Oriented Psychiatric: Normal Affect, Normal Mood Skin Exam: Warm, Dry, Intact, Normal Color Course - Orders/Labs/Meds Orders: Active Orders 24 hr Category Date Time Status Colchicine [Colcrys] Med 04/07/17 11:30 Ordered 0.6 mg PO BID Medication Orders Colchicine (Colcrys) 0.6 mg PO BID KALEY Last Admin: 04/07/17 11:34 Dose: 0.6 mg Meds: Medications Generic Name Dose Route Start Last Admin Trade Name Freq PRN Reason Stop Dose Admin Colchicine 0.6 mg 04/07/17 11:30 04/07/17 11:34 Colcrys PO 0.6 mg BID KALEY Administration Discontinued Medications Generic Name Dose Route Start Last Admin Trade Name Freq PRN Reason Stop Dose Admin Colchicine 0.6 mg 04/07/17 11:22 04/07/17 11:33 Colcrys PO 04/07/17 11:23 0.6 mg ONETIME ONE Administration Departure - Departure Time of Disposition: 11:50 Disposition: Home, Self-Care 01 Condition: Good Clinical Impression: Gout attack Qualifiers: Gout site: toe Gout etiology: idiopathic Laterality: unspecified laterality Qualified Code(s): M10.079 - Idiopathic gout, unspecified ankle and foot - Discharge Information Prescriptions: Colchicine 0.6 mg PO ASDIRECTED PRN #4 tablet PRN Reason: Pain Meloxicam 7.5 mg PO DAILY 5 Days #5 tablet Instructions: Gout, [id number] - My Orders Last 24 Hours: My Active Orders 04/07/17 11:30 Colchicine [Colcrys] 0.6 mg PO BID - Assessment/Plan Last 24 Hours: My Active Orders 04/07/17 11:30 Colchicine [Colcrys] 0.6 mg PO BID
[2017-04-07 12:39] VITALS: BP 157/73
== END 2017-04-07 11:45 | disposition home or self-care (01) ==
LOC: VM.ED 11:14
DX: M10.072 Idiopathic gout, left ankle and foot (principal); M10.071 Idiopathic gout, right ankle and foot; J45.909 Unspecified asthma, uncomplicated; I25.10 Atherosclerotic heart disease of native coronary artery without angina pectoris; N18.9 Chronic kidney disease, unspecified; F32.9 Major depressive disorder, single episode, unspecified; Z85.828 Personal history of other malignant neoplasm of skin; Z90.710 Acquired absence of both cervix and uterus; Z98.890 Other specified postprocedural states; Z79.899 Other long term (current) drug therapy; Z88.2 Allergy status to sulfonamides; Z88.6 Allergy status to analgesic agent; Z88.8 Allergy status to other drugs, medicaments and biological substances; Z87.39 Personal history of other diseases of the musculoskeletal system and connective tissue
CPT/HCPCS: 99283; A9270

== ENCOUNTER 2017-08-02 11:26 | Observation (INO) | payer MEDICARE, OTHER ==
[2017-08-02] MEDS ORDERED: Sodium Chloride 0.9% 10 ML Syringe FLUSH PRN (11:47)
[2017-08-02] MEDS ORDERED: Acetaminophen 325 MG Tab PO PRN (11:47)
[2017-08-02] MEDS ORDERED: Albuterol 0.083% 2.5 MG/3 ML Neb Soln NEB PRN (11:51)
[2017-08-02] MEDS ORDERED: Azithromycin 500 MG in Sodium Chloride 0.9% 250 ML IV SCH (12:00)
[2017-08-02] MEDS ORDERED: cefTRIAXone 1 GM Vial IVPUSH SCH (12:00)
[2017-08-02] MEDS ORDERED: Enoxaparin 40 MG/0.4 ML Syringe SUBCUT SCH (12:00)
[2017-08-02] MEDS ORDERED: Lactated Ringers 1,000 ML IV SCH (12:00)
[2017-08-02] MEDS ORDERED: Iopamidol 612 MG/ML 100 ML Bottle IVPUSH ONE (12:06)
[2017-08-02] MEDS: Albuterol 0.083% 2.5 MG/3 ML Neb Soln NEB SCH ×3 (12:13→19:48)
[2017-08-02] MEDS: methylPREDNISolone Sodium Succinate 40 MG/1 ML SDV IVPUSH SCH (14:39)
[2017-08-02] MEDS ORDERED: COLCHICINE 0.6 MG PO PRN (16:41)
[2017-08-02] MEDS ORDERED: LOPERAMIDE 2 MG PO PRN (17:43)
[2017-08-02] MEDS ORDERED: PROCHLORPERAZINE 10 MG PO PRN (17:45)
[2017-08-02] MEDS: OXYCODONE 10 MG PO SCH (19:49)
[2017-08-02] MEDS: RANITIDINE 150 MG PO SCH (19:49)
[2017-08-02] MEDS ORDERED: AMITRIPTYLINE 25 MG PO SCH (20:00)
[2017-08-02] MEDS ORDERED: VERAPAMIL 40 MG PO SCH (20:00)
[2017-08-02] MEDS ORDERED: CLONAZEPAM 0.5 MG PO SCH (20:00)
[2017-08-02] MEDS ORDERED: MAGNESIUM OXIDE PO SCH (20:00)
[2017-08-02] MEDS ORDERED: MAG AA CHELATE PO SCH (20:00)
--- NOTE | 2017-08-03 01:22 | HP ---
CHIEF COMPLAINT: Shortness of breath. HISTORY OF PRESENT ILLNESS: This is a 71-year-old who came in today with her . She has been feeling unwell for the last week, but begin getting chest tightness last night. She has had some feverish feelings, but has not tested it. She has not coughed. She was short of breath starting 2 days ago. She has not been eating or drinking that well. She does have rheumatoid arthritis and got Remicade around 07/15. Otherwise, she does report history of blood clots like after surgery, but she is not currently on Coumadin. She has some mild chronic kidney disease, creatinine was 1.4. Otherwise, in the clinic, she was found to be mildly hypoxic with O2 of 93% when normally she is in the upper 90s. She had no leg swelling. She had been taking her Lasix at home. She had not noted any weight gain. She did have an echo test back in February, which showed her to have an EF of 55% with some mild aortic regurgitation, moderate mitral regurgitation, no significant pulmonary artery hypertension. She has no known history of coronary artery disease. ALLERGIES: Include sulfa, aspirin, and Reglan. MEDICATIONS: Her medication list is quite extensive and fully reviewed today. 1. OxyContin 10 mg two times a day. 2. Methotrexate 8 tablets weekly. 3. Lasix 10 mg as needed for leg swelling. 4. Ritalin 3 times a day as needed for sleepiness and driving. 5. Elavil 25 mg at bedtime. 6. Klonopin 0.5 mg at bedtime. 7. Albuterol inhaler as needed. 8. Bupropion 150 mg daily. 9. Singulair 10 mg daily. 10.Imitrex as needed. 11.Folic acid 1 mg daily. 12.Advair Diskus 1 puff twice daily. 13.Vitamin D 50,000 units weekly. 14.Keflex as needed for UTIs. 15.Mobic 7.5 mg daily. 16.Colchicine 0.6 mg twice daily p.r.n. for gout. 17.Prilosec 20 mg daily. 18.Plaquenil 20 mg b.i.d. 19.Vitamin B12 IM monthly. 20.Prednisone 5 mg daily. 21.Prozac 20 mg daily. 22.Neurontin 600 mg b.i.d. and 900 mg at night. 23.Zantac 150 mg twice a day. 24.Calan 40 mg b.i.d. 25.[place] 500 mg b.i.d. 26.Vitamin D 2000 units daily. 27.Magnesium 300 mg b.i.d. 28.Colace twice daily as needed for constipation. 29.Imodium as needed for diarrhea. 30.Compazine 1 tablet every 6 hours as needed for nausea. 31.B12 two tablets daily. 32.Niacin 500 mg daily. 33.Multivitamin daily. PAST MEDICAL HISTORY: Does include history of gastric bypass; history of hysterectomy; mild intermittent asthma; history of migraines; hyperprolactinemia; hypoglycemia, probably related to gastric bypass; history of hot flashes, Estrace stopped in 2012; orthostatic hypotension, she does use support stockings; squamous cell skin cancer; vitamin D deficiency; B12 deficiency; iron deficiency anemia; history of coronary artery disease reported based on EKG showing maybe old MIs in the past, has seen Cardiology prior to her colon surgery, had an angiogram actually in 2009 with reported essential normal coronaries; degenerative disk disease of the lumbar spine; osteoporosis with fracture in the past, right distal radius; rheumatoid arthritis involving multiple sites; frequent UTIs, currently no symptoms; chronic kidney disease, stage 3; SI joint dysfunction; recurrent major depressive disorder, in remission; rheumatic mitral regurgitation, moderate; senile osteoporosis; hypersomnia; restless legs syndrome; and low back syndrome with sciatica. PAST SURGICAL HISTORY: As listed above, and also tonsil and adenoidectomy. She had right distal radius ORIF surgery. She had rectopexy by Dr. Norris. She has had cataract surgery; bladder repair, open; hysterectomy; and gastric bypass. It should also be reported her last procedure was a left genicular nerve block on 07/18/2017 [facility]. FAMILY HISTORY: Both parents are . Her father did have stomach cancer. A sister and brother also from cancer. SOCIAL HISTORY: She is . 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 She has 2 children. She does not smoke. REVIEW OF SYSTEMS: General: No recent weight changes. She has felt feverish, but no chills. HEENT: No sore throat. Cardiac: She has had a chest tightness. She puts her hand up over the left side. She has not noted any palpitations. No leg swelling. No orthopnea. Respiratory: She has not had any cough, but she has been short of breath. She has not specifically noted any wheezing. Abdominal: No new changes. No nausea, vomiting, or diarrhea. : No dysuria. Musculoskeletal: No new muscle aches or pain. She does have some chronic back pain and is getting treatments for that currently. Neurologic: She has not had any confusion. Otherwise, all systems reviewed and found to be negative unless otherwise stated. DIAGNOSTIC DATA: Lactic acid was up to 4.5. Lab work from the clinic reviewed, showed a white count elevated to 13.4, hemoglobin 11.4, platelets 331. Sodium was 136, glucose 90, BUN 25, creatinine 1.41, calcium 9.2, CO2 of 24. Actually, her previous creatinine last fall was 1.14. Chest x-ray done in the clinic was concerning for a left mid lung infiltrate. ASSESSMENT: 1. Shortness of breath and chest discomfort: This is likely related to possible pneumonia, but cannot rule out a pulmonary embolism, especially concerning given the fact she lacks a cough, although she has had fever, white count, this finding on the x-ray could be more of an infarct. Otherwise, she does have underlying asthma and this could be contributing as well. We will need to admit her for status to further evaluate this. 2. Chest tightness: It should be noted that her EKG does show some T-wave inversions over the anterior leads. The poor R-wave progression, however, is not new. We will get a troponin on admission. She has had chest pain now for over 12 hours, so we should be able to further evaluate that, but we can also do serial troponins and telemetry. 3. Asthma with mild exacerbation: If no evidence of bad pneumonia by CT, I will start her on some Solu-Medrol. I have already scheduled some nebs. 4. Chronic kidney disease, stage 3: She will get 500 of IV fluids, particularly due to her CT with contrast. 5. Elevated pro-BNP, which was added on, it was up to 15,959, could be related to her kidney disease and age. I am going to follow her clinically as I do not see a significant amount of fluid on her x-ray, but certainly will institute some IV Lasix if necessary. 6. Rheumatoid arthritis: We will hold her methotrexate and Plaquenil. She is not scheduled for Remicade until September. 7. History of gastric bypass: We will continue her home medications to prevent ulcers. We will hold off on any aspirin. 8. Chronic pain: We will continue her home medications, but I am actually going to cut down on the Neurontin dose in case this is contributing somewhat to the possible concern for heart failure. Again, we are going to monitor closely. 9. History of depression: We will continue her home medications. PLAN: At this point, the patient will be admitted under observation status for serial troponins, telemetry. We will give a small amount of IV fluids due to getting the CT scan. We will repeat lab work tomorrow. Anticipate if feeling better and no further events, she will be allowed to return home. She did get 1 dose of IV Rocephin and Zithromax initially, but these were discontinued as there is clinically no signs of infection. No symptoms to warrant urine testing either. This is a respiratory and/or heart problem going on currently. She is a code level 1. MKA: 08/02/2017 17:07:15 MODL: 08/03/2017 01:02:46 /[id number]
[2017-08-03 06:08] VITALS: BP 152/73
[2017-08-03] MEDS ORDERED: OMEPRAZOLE 20 MG PO SCH (07:00)
[2017-08-03] MEDS: Albuterol 0.083% 2.5 MG/3 ML Neb Soln NEB SCH (07:01)
[2017-08-03] MEDS: methylPREDNISolone Sodium Succinate 40 MG/1 ML SDV IVPUSH SCH (07:55)
[2017-08-03] MEDS: RANITIDINE 150 MG PO SCH (07:57)
[2017-08-03] MEDS ORDERED: FLUOXETINE 20 MG PO SCH (08:00)
[2017-08-03] MEDS ORDERED: BUPROPION 150 MG PO SCH (08:00)
[2017-08-03] MEDS: OXYCODONE 10 MG PO SCH (09:08)
--- NOTE | 2017-08-04 03:51 | DISCH ---
PRIMARY DISCHARGE DIAGNOSES: 1. An acute asthma exacerbation. 2. Chest tightness and shortness of breath due to asthma exacerbation, ruled out for myocardial infarction with serial troponins that were negative. 3. Elevated proBNP, mild congestion on chest x-ray, but no clinical signs of heart failure. She had a previous echo that was 55% with moderate mitral regurgitation last February. She does have Lasix available that she takes p.r.n., is encouraged to take that and notify me if having any heart failure problems. 4. Chronic kidney disease stage 3. Creatinine this a.m. on discharge was at her baseline 1.3. 5. Chronic anemia likely due to chronic disease. 6. Rheumatoid arthritis on methotrexate and Plaquenil. She may resume as no pneumonia was found on chest x-ray. 7. History of gastric bypass. 8. Chronic pain. 9. History of depression. REASON FOR ADMISSION: On the date of admission, this 71-year-old female came into the clinic not feeling well over the last week, but having shortness of breath and chest tightness coming on over the last day or two. She was not coughing. She had a negative troponin, but there was concern for potential pulmonary embolism. She had a similar presentation in 2016, and at that time was found to have no PE, but did have multilobar pneumonia. She did get a dose of Rocephin and Zithromax but CT did not show any pneumonia, so this was discontinued. Because of her asthma exacerbation, she was given Solu-Medrol. Because of the CT scan, she was given 500 mL of fluid. Her breathing actually improved. Therefore, I did not feel that her admission was for heart failure even though her proBNP was 15,959. CRP was also elevated at 23, but again she does have underlying rheumatoid arthritis. Hemoglobin was 10.7 on discharge. She did receive Lovenox for DVT prophylaxis. DISCHARGE PLANS AND INSTRUCTIONS: She will follow up with Dr. Weller in the clinic as regularly scheduled. Only new medication is an increase in prednisone to 40 mg daily for 5 days, then resume 5 mg daily after that. She is already using Advair, which she will resume and her Proventil rescue inhaler. We discussed taking nebulizers at home, and at this point, she would like to try it without, but she did receive nebulizers in the hospital. PHYSICAL EXAMINATION: DISCHARGE VITALS: Included temperature 98.5, pulse 81, blood pressure 152/73, respiratory rate 19, and O2 of 95% on 2 L. GENERAL: She is in no acute distress. HEART: Regular rate and rhythm with murmur. There were no events on telemetry. LUNGS: Her lungs sounds were clear to auscultation bilaterally without crackles or wheezes. There was some slight wheezing yesterday on exam. ABDOMEN: Nondistended, nontender. EXTREMITIES: Warm and dry. No edema. MENTAL STATUS: Alert and orientated x3. NECK: Supple without lymphadenopathy. She has no JVD. MKA: 08/03/2017 08:53:58 MODL: 08/04/2017 03:43:00 /[id number]
[2017-08-04] MEDS ORDERED: predniSONE 20 MG Tab PO SCH (08:00)
== END 2017-08-03 11:20 | disposition home or self-care (01) ==
LOC: VM.MS 11:26
PROVIDERS: ADMIT Internal Medicine; ATTEND Internal Medicine
DX: J45.21 Mild intermittent asthma with (acute) exacerbation (principal); I34.0 Nonrheumatic mitral (valve) insufficiency; R79.89 Other specified abnormal findings of blood chemistry; N18.3 Chronic kidney disease, stage 3 (moderate); D63.8 Anemia in other chronic diseases classified elsewhere; M06.9 Rheumatoid arthritis, unspecified; Z98.84 Bariatric surgery status; G89.29 Other chronic pain; F32.9 Major depressive disorder, single episode, unspecified; G43.909 Migraine, unspecified, not intractable, without status migrainosus; E55.9 Vitamin D deficiency, unspecified; E53.8 Deficiency of other specified B group vitamins; I25.10 Atherosclerotic heart disease of native coronary artery without angina pectoris; Z88.2 Allergy status to sulfonamides; Z88.6 Allergy status to analgesic agent; Z88.8 Allergy status to other drugs, medicaments and biological substances; Z79.899 Other long term (current) drug therapy; Z85.828 Personal history of other malignant neoplasm of skin
CPT/HCPCS: 36415; 71275; 80048; 83605; 83880; 84484; 85025; 86140; 94640; 94760; 96361; 96365; 96372; 96375; 96376; G0378; G0379; J0456; J0696; J1650; J2920; J7050; J7120; J7620-GY; Q9967